=== PATIENT | female | born 1970 | race Two or more races ===

== ENCOUNTER 2024-08-18 13:20 | Outpatient (AMB) | payer MEDICAID, SELFPAY ==
--- NOTE | 2024-08-18 13:37 | PD.ORTHCLVIS ---
Vital signs 08/18/24 13:39 Height 1.57 m Height Method Stated Weight 65.884 kg Weight Measurement Method Standing Scale BMI 26.5 BP 125/84 Blood Pressure Source Automatic Cuff Blood Pressure Location Right Upper Arm Position Sitting Respiration 18 Pulse 70 Pulse Source Monitor Temp 98.1 F Temp Source Temporal Artery Scan Med/Allergies Allergies & Medications Allergies No Known Allergies Allergy (Verified 08/18/24 13:40) Medication Reconciliation benazepril 20 mg tablet (Lotensin) 20 mg PO QDAY 10/08/17 [History Confirmed 08/18/24] hydrochlorothiazide 25 mg tablet 25 mg PO QAM 10/08/17 [History Confirmed 08/18/24] gabapentin 300 mg capsule 300 mg PO TID 08/12/18 [History Confirmed 08/18/24] adalimumab 40 mg/0.8 mL subcutaneous syringe kit (Humira) 40 mg subcut QOWEEK 01/02/21 [History Confirmed 08/18/24] duloxetine 60 mg capsule,delayed release (Cymbalta) 60 mg PO QDAY 01/10/21 [History Confirmed 08/18/24] fluconazole 200 mg tablet 200 mg PO QDAY 01/10/21 [History Confirmed 08/18/24] folic acid 1 mg tablet 1 mg PO QDAY 01/10/21 [History Confirmed 08/18/24] Exam Exam Patient is in no acute distress and is cooperative with the examination today. Breathing is nonlabored. In no respiratory distress. Bilateral extremities were evaluated and demonstrates sensation intact to light touch. Palpable pedal pulses are present. No significant edema is present. Bilateral hips were examined. The patient has no pain with log roll of the hips. Internal rotation to 30 degrees and external rotation to 30 degrees is painless. Negative FADIR. The left knee was examined. The left knee is in varus alignment. Range of motion from 0-115 degrees. Knee is stable to varus and valgus as well as AP translation with <5mm. Patient has a negative McMurrays. There is no pain with patellofemoral compression and no crepitus noted. The knee is tender to palpation medially. The right knee was also examined. The right knee is in valgus alignment. Range of motion from 0-120 degrees. Knee is stable to varus and valgus as well as AP translation with <5mm. Patient has a negative McMurrays. There is no pain with patellofemoral compression and no crepitus noted. The knee is tender to palpation Laterally X-rays were personally reviewed by me. They are over 2 years old. This demonstrates valgus alignment in the lateral arthritis on the left. She has right knee pain on the right Assessment and Plan Problem List (1) Rheumatoid arthritis: Status: Acute Plan: Patient is a 54-year-old female with bilateral rheumatoid arthritis both knees. The left is worse than the right. She has no recent weightbearing x-rays. We will get weightbearing x-rays and discuss different treatment options from there. She is failed conservative treatment with any multiple injections, anti-inflammatories, and physical therapy. 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 OPERATOR Level 3 (0609-0359) MA Intake Visit Data Collection New Patient or Established: New Patient (never been to [facility]) Reason for Visit:: KNEE PAIN Seen by Clinical Staff ONLY (RN/MA): No Verbal consent obtained for Telemed visit?: No Public Events Facilities Rental Manager Required: No PCP or OBGYN visit in last 3 months: Yes Hx Now: No Do You Feel Safe at Home: Yes Authorities Contacted: N/A Questionairres Past Medical History Past Medical History Have you ever been diagnosed with any of the following: Neurological Problems Migraine: Yes Cardiology Problems Congestive Heart Failure: No Hypertension: Yes Respiratory Problems Chronic Obstructive Pulmonary Disease (COPD): No Bronchitis: Yes Genital/Urinary Problems Renal Disease: No Musculoskeletal Problems Arthritis: Yes Carpal Tunnel Syndrome: Yes (hand and shoulder) Fibromyalgia: Yes Endocrine Problems Diabetes Mellitus Type 1: No Diabetes Mellitus Type 2: No Other Problems Cancer: No Surgical History Hysterectomy: Yes Subjective Visit Visit for: new patient and knee Immunization / Flu Flu Vaccine in the Last 12 Months: No Flu Vaccine Exclusion Criteria: No Exclusion Criteria History of Present Illness Chief complaint: Rheumatoid arthritis Jenny is a pleasant 54-year-old female with a left greater than right knee pain that has been ongoing for quite a while. Had a history of prior arthroscopic meniscectomy which did not help. She has had 4 injections with minimal relief. She is also on Celebrex. She is also tried physical therapy Pain Pain level (0-10): 8 Pain duration: ALL DAY Pain location: inside (medial), outside (lateral), anterior and posterior Pain quality: sharp, dull and aching Pain timing: increases with activity Associated signs & symptoms: weakness and stiffness Ambulatory data Ambulatory device: none Treatments Number of previous injections: 4 Improvement with previous injections: No Improvement with PT: No Improvement with NSAIDS: n/a Review of Systems Review of Systems: All systems negative unless otherwise noted in HPI.
[2024-08-18 13:39] VITALS: BP 125/84; PULSE 70; RESP 18; TEMP 36.7; BMI 26.5
== END 2024-08-18 13:48 | disposition home or self-care (01) ==
LOC: HODSRG 13:20
PROVIDERS: PCP Internal Medicine Rheumatology; Referring Provider Internal Medicine Rheumatology; Supervising Provider Orthopaedic Surgery Adult Reconstructive Orthopaedic Surgery; Visit Provider Orthopaedic Surgery Adult Reconstructive Orthopaedic Surgery
DX: M06.862 Other specified rheumatoid arthritis, left knee (principal); M06.861 Other specified rheumatoid arthritis, right knee; M25.562 Pain in left knee; M25.561 Pain in right knee; I10 Essential (primary) hypertension
CPT/HCPCS: 99203; G0463

== ENCOUNTER → 2024-08-18 | Outpatient (CLI) | payer MEDICAID, SELFPAY ==
--- NOTE | 2024-08-18 15:08 | XR_ITS ---
Examination: Knee bilateral, 8 views Technique: Knee AP, lateral, oblique, axial H knee total 8 views Date and time of exam: August 18, 2024 1513 hours INDICATIONS: History left knee dislocation, chronic bilateral knee pain 6 years. FINDINGS: Moderate osteopenia Moderate bilateral tricompartment osteoarthritis, more severe left knee Osteophyte joint bodies in the posterior joint spaces both knees No patellar dislocations IMPRESSION: Moderate bilateral tricompartment osteoarthritis, more severe left knee
== END | disposition home or self-care (01) ==
PROVIDERS: PCP Physician Assistant; Referring Provider Orthopaedic Surgery Adult Reconstructive Orthopaedic Surgery; Visit Provider Orthopaedic Surgery Adult Reconstructive Orthopaedic Surgery
DX: M17.0 Bilateral primary osteoarthritis of knee (principal)
CPT/HCPCS: 73564

== ENCOUNTER 2024-09-05 13:01 | Outpatient (AMB) | payer MEDICAID, SELFPAY ==
--- NOTE | 2024-09-05 13:15 | PD.ORTHCLVIS ---
Vital signs 09/05/24 13:16 Height 1.57 m Height Method Stated Weight 66.395 kg Weight Measurement Method Standing Scale BMI 26.9 BP 118/77 Blood Pressure Source Automatic Cuff Blood Pressure Location Left Upper Arm Position Sitting Respiration 18 Pulse 71 Pulse Source Monitor Temp 97.7 F Temp Source Temporal Artery Scan Pulse Oximetry (%) 96 Oxygen Delivery Method Room Air Med/Allergies Allergies & Medications Allergies No Known Allergies Allergy (Verified 09/05/24 13:16) Medication Reconciliation benazepril 20 mg tablet (Lotensin) 20 mg PO QDAY 10/08/17 [History Confirmed 09/05/24] hydrochlorothiazide 25 mg tablet 25 mg PO QAM 10/08/17 [History Confirmed 09/05/24] gabapentin 300 mg capsule 300 mg PO TID 08/12/18 [History Confirmed 09/05/24] adalimumab 40 mg/0.8 mL subcutaneous syringe kit (Humira) 40 mg subcut QOWEEK 01/02/21 [History Confirmed 09/05/24] duloxetine 60 mg capsule,delayed release (Cymbalta) 60 mg PO QDAY 01/10/21 [History Confirmed 09/05/24] fluconazole 200 mg tablet 200 mg PO QDAY 01/10/21 [History Confirmed 09/05/24] folic acid 1 mg tablet 1 mg PO QDAY 01/10/21 [History Confirmed 09/05/24] Exam Exam Patient is in no acute distress and is cooperative with the examination today. Breathing is nonlabored. In no respiratory distress. Bilateral extremities were evaluated and demonstrates sensation intact to light touch. Palpable pedal pulses are present. No significant edema is present. Bilateral hips were examined. The patient has no pain with log roll of the hips. Internal rotation to 30 degrees and external rotation to 30 degrees is painless. Negative FADIR. The left knee was examined. The left knee is in varus alignment. Range of motion from 0-115 degrees. Knee is stable to varus and valgus as well as AP translation with <5mm. Patient has a negative McMurrays. There is no pain with patellofemoral compression and no crepitus noted. The knee is tender to palpation medially. The right knee was also examined. The right knee is in valgus alignment. Range of motion from 0-120 degrees. Knee is stable to varus and valgus as well as AP translation with <5mm. Patient has a negative McMurrays. There is no pain with patellofemoral compression and no crepitus noted. The knee is tender to palpation Laterally X-rays were personally reviewed by me. This demonstrates valgus alignment in the lateral arthritis on the left. She has mild arthritis on the right Assessment and Plan Problem List (1) Rheumatoid arthritis: Status: Acute Plan: Patient seen for pleasant 54-year-old female with a left knee rheumatoid arthritis with significant severity. We discussed nonoperative and operative options. She is failed conservative treatment occluding injections, anti-inflammatories, physical therapy, and rheumatoid medications. She is currently off rheumatoid medications. We discussed total knee replacement as I was a reasonable option given her failure of conservative treatment. She would like to proceed. The nature and purpose of the total knee replacement, alternative method(s) of treatment, the material risks involved, and the possibility of complications were fully explained to the patient. The patient does NOT have any of the following contraindications to TKA: - Active infection of the knee joint, OR - Active systemic bacteremia, OR - Active skin infection or open wound at surgical site, OR - Neuropathic arthritis, OR - Severe, rapidly progressive neurological disease, OR - Severe medical condition that makes risks of surgery outweigh the potential benefit The patient was told the most common risks and complications associated with a total knee replacement include, but are not limited to: blood clots in the leg, fatal pulmonary embolism, dislocation of the prosthesis, intraoperative and postoperative fractures of the femur or tibia, infection, failure of the prosthesis or grafting materials, complications from anesthesia, reactions to blood transfusions, postoperative leg length inequality, instability of the knee replacement, nerve damage or injury, vascular injury, delayed wound healing, infection, other injury or even . In addition, there are risks associated with anesthesia given during this operation. Also, the patient was told that after undergoing a total knee replacement there may still be persistent pain or disability. The patient was informed that the success of this operation in part depends upon the mechanical devices which are going to be implanted and that these devices can fail or malfunction, and may need to be repaired or replaced and there are no guarantees as to the longevity of this device or its parts and that it or its parts could fail prematurely. The patient was also notified that during the course of surgery, there may be a need to use bone graft from donors, and that any bone graft used will be carefully screened for communicable diseases, including AIDS, hepatitis, Ernesto-Creutzfeldt, or other diseases, but despite the screening procedures, there is a small chance that they could contract one of these diseases. Finally, the patient was asked to follow completely and fully with all advice and recommended treatments, and that recovery and ultimate outcome are affected by their compliance with recommended treatment. We discussed the risks, benefits and treatment alternatives, and the patient is interested in proceeding with surgery. We will try to set this up as expeditiously as possible. Office Procedures GNS Level of Care Nursing/Assessment Patient Status: Established Patient Nursing Assessment/Reassesment: Medication Reconciliation, Update PMH in EMR and Vital Signs Coordination of Care: Complex Care and Chronic Disease 1-5, Education Complex Pt/Fam, Consent,records obtained, informed consent, Results/Orders obtained and Staff clarify orders Established Patient Charge Established Patient Point Assignment: 95 Established Patient Point Charge: EP Level 3 (80-115) MA Intake Visit Data Collection New Patient or Established: Established Patient [place] [facility] [place] Reason for Visit:: 1 WEEK F/U BL XRAYS Seen by Clinical Staff ONLY (RN/MA): No Chemical Operations Specialist Required: No PCP or OBGYN visit in last 3 months: Yes Hx Now: No Do You Feel Safe at Home: Yes Authorities Contacted: N/A Questionairres Past Medical History Past Medical History Have you ever been diagnosed with any of the following: Neurological Problems Migraine: Yes Cardiology Problems Congestive Heart Failure: No Hypertension: Yes Respiratory Problems Chronic Obstructive Pulmonary Disease (COPD): No Bronchitis: Yes Genital/Urinary Problems Renal Disease: No Musculoskeletal Problems Arthritis: Yes Carpal Tunnel Syndrome: Yes (hand and shoulder) Fibromyalgia: Yes Endocrine Problems Diabetes Mellitus Type 1: No Diabetes Mellitus Type 2: No Other Problems Cancer: No Surgical History Hysterectomy: Yes Subjective Visit Visit for: follow up visit, knee and x-rays (RESULTS) Immunization / Flu Flu Vaccine in the Last 12 Months: No Flu Vaccine Exclusion Criteria: Refused by Patient History of Present Illness Chief complaint: Rheumatoid arthritis Jenny is a pleasant 54-year-old female with a left greater than right knee pain that has been ongoing for quite a while. She Had a history of prior arthroscopic meniscectomy which did not help. She has had 4 injections with minimal relief. She is also on Celebrex. She has also tried physical therapy. She is currently off all rheumatoid medications including the Humira and prednisone Pain Pain level (0-10): 8 Pain duration: CONSTANT Pain location: anterior Pain quality: sharp, dull and aching Pain timing: increases with activity and stairs Associated signs & symptoms: numbness Ambulatory data Ambulatory device: none Treatments Number of previous injections: 4 Improvement with previous injections: No Improvement with PT: No Improvement with NSAIDS: no Review of Systems Review of Systems: All systems negative unless otherwise noted in HPI.
[2024-09-05 13:16] VITALS: BP 118/77; PULSE 71; RESP 18; TEMP 36.5; O2SAT 96; BMI 26.9
== END 2024-09-05 13:47 | disposition home or self-care (01) ==
LOC: HODSRG 13:01
PROVIDERS: PCP Physician Assistant; Referring Provider Physician Assistant; Supervising Provider Orthopaedic Surgery Adult Reconstructive Orthopaedic Surgery; Visit Provider Orthopaedic Surgery Adult Reconstructive Orthopaedic Surgery
DX: M06.862 Other specified rheumatoid arthritis, left knee (principal); M25.562 Pain in left knee; M25.561 Pain in right knee; M79.7 Fibromyalgia; I10 Essential (primary) hypertension
CPT/HCPCS: 99213; G0463

== ENCOUNTER → 2024-09-11 | Outpatient (CLI) | payer MEDICAID, SELFPAY ==
--- NOTE | 2024-09-11 10:15 | XR_ITS ---
Examination: Screening digital mammography, bilateral Computer aided detection 3-D breast Tomosynthesis, bilateral Date and time of exam: September 11, 2024 1017 hours Compared to mammograms dating to December 23, 2017 Indication: Screening Technique: Nonmagnified MLO, CC views of the breasts to been obtained, reconstructed from 3-D Tomosynthesis images. R2 computer aided detection program utilized for evaluation of suspicious masses and/or abnormal calcifications. 3-D Tomosynthesis images obtained. Findings: The breasts are heterogeneously dense, which may obscure small masses 14 mm focal asymmetry slightly outer right breast 5.7 cm from the nipple on the CC view Impression: BI-RADS Category 0: Incomplete: Need additional imaging evaluation 14 mm focal asymmetry outer right breast 5.7 cm from the nipple on the CC view, recommend follow-up spot tomographic CC view, spot tomographic MLO view upper right breast, bilateral breast sonography to complete the workup
== END | disposition home or self-care (01) ==
PROVIDERS: Referring Provider Physician Assistant; Visit Provider Physician Assistant
DX: Z12.31 Encounter for screening mammogram for malignant neoplasm of breast (principal); R92.8 Other abnormal and inconclusive findings on diagnostic imaging of breast; N64.89 Other specified disorders of breast
CPT/HCPCS: 77063; 77067

== ENCOUNTER 2024-10-17 10:43 | Outpatient (AMB) | payer MEDICAID, SELFPAY ==
[2024-10-17 11:01] VITALS: BP 137/79; PULSE 66; RESP 19; TEMP 36.3; O2SAT 97; BMI 27.1
--- NOTE | 2024-10-17 11:01 | ORTHONT_ITS ---
Vital signs 10/17/24 11:01 Height 1.57 m Height Method Stated Weight 66.791 kg Weight Measurement Method Standing Scale BMI 27.1 BP 137/79 H Blood Pressure Source Automatic Cuff Blood Pressure Location Left Upper Arm Position Sitting Respiration 19 Pulse 66 Pulse Source Monitor Temp 97.4 F Temp Source Temporal Artery Scan Pulse Oximetry (%) 97 Oxygen Delivery Method Room Air Med/Allergies Allergies & Medications Allergies No Known Allergies Allergy (Verified 10/17/24 11:02) Medication Reconciliation benazepril 20 mg tablet (Lotensin) 20 mg PO QDAY 10/08/17 [History Confirmed 09/05/24] gabapentin 300 mg capsule 300 mg PO TID 08/12/18 [History Confirmed 09/05/24] adalimumab 40 mg/0.8 mL subcutaneous syringe kit (Humira) 40 mg subcut QOWEEK 01/02/21 [History Confirmed 09/05/24] duloxetine 60 mg capsule,delayed release (Cymbalta) 60 mg PO QDAY 01/10/21 [History Confirmed 09/05/24] ibuprofen 600 mg tablet 600 mg PO Q8H PRN 10/17/24 [History Confirmed 10/17/24] Exam Exam Patient is in no acute distress and is cooperative with the examination today. Breathing is nonlabored. In no respiratory distress. Bilateral extremities were evaluated and demonstrates sensation intact to light touch. Palpable pedal pulses are present. No significant edema is present. Bilateral hips were examined. The patient has no pain with log roll of the hips. Internal rotation to 30 degrees and external rotation to 30 degrees is painless. Negative FADIR. The left knee was examined. The left knee is in varus alignment. Range of motion from 0-115 degrees. Knee is stable to varus and valgus as well as AP translation with <5mm. Patient has a negative McMurrays. There is no pain with patellofemoral compression and no crepitus noted. The knee is tender to palpation medially. The right knee was also examined. The right knee is in valgus alignment. Range of motion from 0-120 degrees. Knee is stable to varus and valgus as well as AP translation with <5mm. Patient has a negative McMurrays. There is no pain with patellofemoral compression and no crepitus noted. The knee is tender to palpation Laterally X-rays were personally reviewed by me. This demonstrates valgus alignment in the lateral arthritis on the left. She has mild arthritis on the right Assessment and Plan Problem List (1) Rheumatoid arthritis: Status: Acute Plan: Patient seen for pleasant 54-year-old female with a left knee rheumatoid arthritis with significant severity. We discussed nonoperative and operative options. She is failed conservative treatment occluding injections, anti-infl ammatories, physical therapy, and rheumatoid medications. She is currently off rheumatoid medications. We discussed total knee replacement as I was a reasonable option given her failure of conservative treatment. She would like to proceed. The nature and purpose of the total knee replacement, alternative method(s) of treatment, the material risks involved, and the possibility of complications were fully explained to the patient. The patient does NOT have any of the following contraindications to TKA: - Active infection of the knee joint, OR - Active systemic bacteremia, OR - Active skin infection or open wound at surgical site, OR - Neuropathic arthritis, OR - Severe, rapidly progressive neurological disease, OR - Severe medical condition that makes risks of surgery outweigh the potential benefit The patient was told the most common risks and complications associated with a total knee replacement include, but are not limited to: blood clots in the leg, fatal pulmonary embolism, dislocation of the prosthesis, intraoperative and postoperative fractures of the femur or tibia, infection, failure of the prosthesis or grafting materials, complications from anesthesia, reactions to bl ood transfusions, postoperative leg length inequality, instability of the knee replacement, nerve damage or injury, vascular injury, delayed wound healing, infection, other injury or even . In addition, there are risks associated with anesthesia given during this operation. Also, the patient was told that after undergoing a total knee replacement there may still be persistent pain or disability. The patient was informed that the success of this operation in part depends upon the mechanical devices which are going to be implanted and that these devices can fail or malfunction, and may need to be repaired or replaced and there are no guarantees as to the longevity of this device or its parts and that it or its parts could fail prematurely. The patient was also notified that during the course of surgery, there may be a need to use bone graft from donors, and that any bone graft used will be carefully screened for communicable diseases, including AIDS, hepatitis, Ernesto-Creutzfeldt, or other diseases, but despite the screening procedures, there is a small chance that they could contract one of these diseases. Finally, the patient was asked to follow completely and fully with all advice and recommended treatments, and that recovery and ultimate outcome are affected by their compliance with recommended treatment. We discussed the risks, benefits and treatment alternatives, and the patient is interested in proceeding with surgery. We will try to set this up as expeditiously as possible. Office Procedures GNS Level of Care Nursing/Assessment Patient Status: Established Patient Nursing Assessment/Reassesment: Medication Reconciliation, Update PMH in EMR and Vital Signs Coordination of Care: Complex Care/Chronic Disease 5 or more, Education Complex Pt/Fam, Consent,records obtained, informed consent, 2-3 Insurance Autorizations needed, Lab and Imaging orders, Results/Orders obtained and Staff clarify orders Established Patient Charge Established Patient Point Assignment: 140 Established Patient Point Charge: EP Level 4 (120-155) [place] Intake Visit Data Collection New Patient or Established: Established Patient (seen at [facility] within 3 years) Reason for Visit:: PRE OP LEFT TKA Surgical Corsetier Required: No Do You Feel Safe at Home: Yes Questionairres Past Medical History Past Medical History Have you ever been diagnosed with any of the following: Neurological Problems Migraine: Yes Cardiology Problems Congestive Heart Failure: No Hypertension: Yes Respiratory Problems Chronic Obstructive Pulmonary Disease (COPD): No Bronchitis: Yes Smoking: No Smoking Exposure: No Genital/Urinary Problems Renal Disease: No Musculoskeletal Problems Arthritis: Yes Carpal Tunnel Syndrome: Yes (hand and shoulder) Fibromyalgia: Yes Endocrine Problems Diabetes Mellitus Type 1: No Diabetes Mellitus Type 2: No Psychologic Problems Depression: No Other Problems Cancer: No Surgical History Hysterectomy: Yes Subjective Visit Visit for: knee (LEFT KNEE) Immunization / Flu Flu Vaccine in the Last 12 Months: No Flu Vaccine Exclusion Criteria: No Exclusion Criteria History of Present Illness Chief complaint: PRE OP LEFT TKA Jenny is a pleasant 54-year-old female with a left greater than right knee pain that has been ongoing for quite a while. She Had a history of prior arthroscopic meniscectomy which did not help. She has had 4 injections with minimal relief. She is also on Celebrex. She has also tried physical therapy. She is currently off all rheumatoid medications including the Humira and prednisone Personal History Red flag PMH: none BMI Counceling provided: Yes Pain Pain level (0-10): 7 Pain duration: CONSTANT Pain location: inside (medial) and anterior Pain quality: dull Pain timing: increases with activity and stairs Associated signs & symptoms: weakness Ambulatory data Ambulatory device: none Treatments Number of previous injections: 4 Improvement with previous injections: No Improvement with PT: No Improvement with NSAIDS: no Review of Systems Review of Systems: All systems negative unless otherwise noted in HPI.
== END 2024-10-17 11:16 | disposition home or self-care (01) ==
LOC: HODSRG 10:43
PROVIDERS: Supervising Provider Orthopaedic Surgery Adult Reconstructive Orthopaedic Surgery; Visit Provider Orthopaedic Surgery Adult Reconstructive Orthopaedic Surgery
DX: M06.862 Other specified rheumatoid arthritis, left knee (principal); I10 Essential (primary) hypertension
CPT/HCPCS: 99214; G0463

== ENCOUNTER → 2024-10-17 | Outpatient (CLI) | payer MEDICAID, SELFPAY ==
--- NOTE | 2024-10-17 12:48 | XR_ITS ---
Examination: CT left lower extremity, without contrast. 2-D sagittal reconstructions. 2-D coronal reconstructions. 3-D reconstructions. Date and time of exam:October 17, 2024 1317 hrs. Indications: Left knee pain several months, diagnosis unilateral osteoarthritis CTDI: vol (mGy):10.2 DLP: (mGycm):838 Technique: Multiple 1.25 mm axial sections of the left lower extremity have been obtained. 2-D sagittal and coronal reconstructions have been obtained. 3-D reconstructions have been obtained. Low dose protocols were performed. One or more of the following dose reduction techniques were used; automated exposure control, adjustment of the mA and/or KV according to patient size, use of iterative reconstruction technique. Findings: Moderate osteopenia Mild narrowing left hip joint Advanced narrowing lateral joint space left knee Moderate osteoarthritis medial patellofemoral joints No fractures Impression: Moderate to advanced left knee tricompartment osteoarthritis
== END | disposition home or self-care (01) ==
LOC: CDIM 11:42 → CCTX 11:43
PROVIDERS: PCP Physician Assistant; Referring Provider Orthopaedic Surgery Adult Reconstructive Orthopaedic Surgery; Visit Provider Orthopaedic Surgery Adult Reconstructive Orthopaedic Surgery
DX: M17.12 Unilateral primary osteoarthritis, left knee (principal)
CPT/HCPCS: 73700

== ENCOUNTER 2024-10-30 07:00 | Day surgery (SDC) | payer MEDICAID, SELFPAY ==
--- NOTE | 2024-10-27 06:00 | EKG_ITS ---
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
[2024-10-27 07:23] VITALS: BMI 26.6
[2024-10-27 08:52] LABS: Basophils # (Auto) 0.1 Thou/mm3 (0.0-0.2); Basophils % (Auto) 1 % (0-2.5); Eosinophils # (Auto) 0.1 Thou/mm3 (0.0-0.5); Eosinophils % (Auto) 3 % (0-10); Hematocrit 38.2 % (36.0-46.0); Hemoglobin 12.5 g/dL (12.0-16.0); Immature Granulocytes % (Auto) 0 % (0-0); Immature Granulocytes Auto 0.01 Thou/mm3 (0.00-0.00); Lymphocytes % (Auto) 53 % (10-50); Mean Corpuscular HGB Conc 32.7 g/dl (31.0-37.0); Mean Corpuscular Hemoglobin 26.5 pg (25.0-35.0); Mean Corpuscular Volume 81 fL (80-100); Monocytes # (Auto) 0.6 Thou/mm3 (0.0-0.8); Monocytes % (Auto) 10 % (0-12); Neutrophils # (Auto) 1.9 Thou/mm3 (1.8-7.7); Neutrophils % (Auto) 34 % (37-80); Nucleated Red Blood Cell % 0 /100 WBC (0); Platelet Count 345 Thou/mm3 (140-440); RDW Standard Deviation 43.2 fL (36.4-46.3); Red Blood Count 4.71 Miln/mm3 (4.00-5.20); White Blood Count 5.7 Thou/mm3 (3.6-11.0)
[2024-10-27 09:15] LABS: Alanine Aminotransferase 41 U/L (10-49); Albumin, Serum 4.5 gm/dL (3.5-5.0); Albumin/Globulin Ratio 1.6 (1.2-2.2); Alkaline Phosphatase 72 U/L (46-116); Anion Gap 6 (7-16); Aspartate Amino Transferase 25 U/L (0-34); BUN/Creatinine Ratio 17 Ratio (12-20); Bilirubin,Total 0.5 mg/dL (0.3-1.2); Blood Urea Nitrogen 12 mg/dL (9-23); Calcium 9.2 mg/dL (8.3-10.6); Calcium (Corrected) 9.2 mg/dL (8.5-10.1); Carbon Dioxide 27.3 mMol/L (20.0-31.0); Chloride 108 mMol/L (98-107); Creatinine (Component) 0.7 mg/dL (0.6-1.3); Estimated Creatinine Clearance 82.8 mL/min (>60); Globulin 2.9 gm/dL (2.3-3.5); Glucose 100 mg/dL (74-106); Osmolality,Calculated 280 (275-295); Potassium 4.2 mMol/L (3.4-5.1); Sodium 141 mMol/L (136-145); Total Protein 7.4 gm/dL (5.7-8.2); eGFR > 60 See Note
[2024-10-27 09:46] LABS: Partial Thromboplastin Time 26.7 Seconds (22.0-36.0); Prothrombin Time 10.7 Seconds (9.0-12.2)
[2024-10-30] VITALS (16 sets, daily range): BP systolic 109–146; BP diastolic 77–95; PULSE 64–104; RESP 12–20; TEMP 36.1–36.5; O2SAT 91–98; BMI 26.5
--- NOTE | 2024-10-30 07:59 | SUR.PREOP ---
Patient expressed gratitude for prayer before their procedure.
[2024-10-30] MEDS: RINGERS LACTATED 1000 ML 1,000 ML 20 ML IV (08:10)
[2024-10-30] MEDS: PREGABALIN 75 MG CAPSULE PO (08:10)
[2024-10-30] MEDS: MELOXICAM 7.5 MG TABLET PO (08:11)
[2024-10-30] MEDS: ACETAMINOPHEN 325 MG TABLET 650 MG PO (08:11)
--- NOTE | 2024-10-30 11:41 | ESOP_ITS ---
Date of Procedure 10/30/24 Pre Op Diagnosis left knee rheumatoid arthritis Post Op Diagnosis left knee rheumatoid arthritis Procedure left total knee replacement Findings full thickness cartilage loss and osteophytes Procedure Description Indication: The patient is a [69] year old who has a long history of left knee pain. X-rays show degenerative arthritis involving the knee secondary to RA. Over the past several years the patient has had increasing pain, progressive limitation in function. He has failed conservative measures including activity modification, physical therapy, injections, anti-inflammatories, and assistive devices. After a lengthy discussion of the risks and benefits, the patient presents now for total knee replacement. The nature and purpose of the total knee replacement, alternative method(s) of treatment, the material risks involved, and the possibility of complications were fully explained to the patient. The patient was told the most common risks and complications associated with a total knee replacement include, but are not limited to blood clots in the leg, fatal pulmonary embolism, dislocation of the prosthesis, intraoperative and postoperative fractures of the femur or tibia, infection, failure of the prosthesis or grafting materials, complications from anesthesia, reactions to blood transfusions, postoperative leg length inequality, instability of the knee replacement, nerve damage or injury, vascular injury, delayed wound healing, infections, other injury or even . In addition, there are risks associated with anesthesia given during this operation, temporary or permanent numbness on the skin lateral to the incision can be a complication unique to total knee surgery, and kneeling can be painful after knee replacement surgery. Also, the patient was told that after undergoing a total knee replacement there may still be pain or disability. We discussed with the patient that we will be using a robot-assisted technology. We discussed that there is a possibility of converting to manual instrumentation. The patient was informed that the success of this operation in part depends upon the mechanical devices which are going to be implanted and that these devices can fail or malfunction, and may need to be repaired or replaced and there are no guarantees as to the longevity of this device or its part and that it or its parts could fail prematurely. Finally, the patient was asked to follow completely and fully with all advice and recommended treatments, and that recovery and ultimate outcome are affected by their compliance with recommended treatment. Surgical technique: Patient was marked and consented in the pre-operative area. The patient was brought to the operating room and placed on the operating table in a supine position. Prior to positioning, a timeout procedure was performed between the surgeon, the anesthesiologist, and the nursing staff where the patient and the operative side were identified and confirmed. After adequate general anesthetic was obtained, the left lower extremity was prepped and draped in the usual sterile fashion. A weight based dose of Cefazolin were administered within 1 hour prior to incision. The robot was preregistered and calirated before the incision. The extremity was exsanguinated with an esmarch badge and tourniquet inflated to 250mmHg. A midline incision was made. A median parapatellar arthrotomy was made. The patella was subluxed laterally. A medial release was performed to expose the medial tibia. His femoral and tibial pins were placed through an intra incisional manner for both cases. Every effort was made to ensure that the distalmost aspect of the pin was hung in the second cortex. The arrays were then tightened several times to ensure that it was fixed for the remainder of the case. Both femoral and tibial checkpoints were then placed. We then went through the registration process of the bone. We then assessed the knee deformity and attempted to correct it. We also used the robot to aid in judging laxity in both extension and flexion. Final based on laxity and alignment we changed the preoperative assessment to obtain proper proper implant positioning and to correct deformity. Attention was then placed to the tibia. We made a tibial cut using the robot ensuring that both the MCL and the patella tendon were protected with retractors. We then went to the femur and made the posterior cut followed by the anterior cut and the anterior chamfer. The bone was then removed and we made a distal femur cut and a posterior chamfer cut. We verified all cuts. A trial reduction was performed with a size 3 femoral component and a size 2 keeled tibial component. The patella was cut and sized to a 31. The patella tracked centrally, and no lateral retinacular release was necessary. The trial implants were removed. The arrays, pins, and checkpoints were all removed. We performed a verification that all pins were removed. The cut bone surfaces were lavaged. A size 3 left femoral component, a size 2 keeled tibial component, and a size 31 patella were impacted into position. The knee was felt to be well balanced in the sagittal and coronal plane. The final 2x9 mm cruciate-substituting articular insert was impacted into the tibial tray. The knee was brought out to full extension, flexed up to 120 degrees. It was stable to varus and valgus stress and appropriately balanced in flexion and extension. The wounds were copiously irrigated following deflation of tourniquet. The medial retinaculum was reapproximated with #1 vicryl and quill. The subcutaneous tissues were closed with 0 and 2-0 interrupted Vicryl. The skin was closed with 3-0 Monofilament V loc suture. A sterile dressing was applied. The patient was transferred to a bed and brought to recovery in stable condition. The patient tolerated the procedure well. There were no intraoperative complications. Sponge and needle counts were correct times 2. As the attending surgeon, I attest I was present and performed the entire operation. Grafts/Implants Size 3 CR Femur Size 2 Tibia 9mm poly CS 31mm patella Anesthesia GETA Implants adarsh Pathology / specimen None Pathology comment: none Estimated Blood Loss 150 Condition Stable Disposition same day Surgeon Edwin Dhillon MD Surgical Staff Operation Date: 10/30/24 10:45 Case Staff Anesthesiologist: Amadeo Mireles RNemergency communications officer: Alison Sigala
--- NOTE | 2024-10-30 11:57 | XR_ITS ---
Examination: Left knee 2 views Technique one AP lateral left knee 2 views Exam date and time: October 30, 2024 1310 hours INDICATIONS: Postop knee replacement today. FINDINGS: Total left knee arthroplasty. Satisfactory alignment No fracture IMPRESSION: Total left knee arthroplasty with satisfactory alignment
--- NOTE | 2024-10-30 12:06 | SUR.PHASEI ---
1206: Pt. AAOx4, vitals stable, breathing unlabored, complaint of pain, MD Mireles gave 25 fent at bedside, dressing to left knee CDI, no active bleed noted, bilateral dorsalis pedis pulses strong and regular, cap refill to bilateral feet less than 3 seconds, report received from MD Mireles and Michel TAFOYA.
[2024-10-30] MEDS: fentaNYL CIT INJ 50 mCg/ML AMP 2ML IV ×2 (12:27→13:04)
[2024-10-30] MEDS: CYCLObenzaPRINE 5 MG TABLET 10 MG PO (12:34)
--- NOTE | 2024-10-30 13:00 | SUR.PHASEII ---
Received report on pt. s/p surgery from Abi TAFOYA. Pt. is resting, responds to verbal commands, c/o pain 5/10, will provide pain medication per order. Cap refill <3 seconds, palpable pulses to priyanka. feet.
--- NOTE | 2024-10-30 13:33 | SUR.PHASEII ---
1333: Report received from Leslie TAFOYA. Pt. AAOx4, vitals stable, breathing unlabored, dressing CDI, no complaint of pain or nausea.
[2024-10-30] MEDS: ONDANSETRON INJ 2 MG/ML INJ 2 ML 4 MG IV (13:54)
[2024-10-30] MEDS: METOCLOPRAMIDE INJ 5 MG/ML VIAL 2 ML 10 MG IVP (14:32)
[2024-10-30] MEDS: ACETAMINOPHEN IVPB 1,000 MG/100 ML VIAL 250 MG IV (15:11)
--- NOTE | 2024-10-30 15:40 | SUR.PHASEII ---
1540: Pt. AAOx4, vitals stable, breathing unlabored, no complaint of pain or nausea, dressing to left knee CDI, no active bleeding noted. Bilateral dorsalis pedis pulses strong and regular, cap refill to bilateral feet less than 3 seconds, Pt. tolerated PT well, pt. tolerated sips of water well, pt. ambulated to wheelchair with steady gait and no assist, no complications. Gave discharge instructions to the pt. and her ride, both verbalized understanding and had no further questions. Pt. left with all personal belongings.
--- NOTE | 2024-11-01 14:39 | PD.ANESPROG ---
Documentation for date of: 11/01/24 POST ANESTHESIA NOTE: Patient had GETA and L adductor canal block for L TKA on 10/30/24. I just called and spoke with her on the phone and she denied any problems from anesthesia. Amadeo Mireles MD Anesthesia Progress Note Progress Note Most recent Vital Signs: Last Vital Signs Temp 97.7 F 10/30/24 15:30 Pulse 87 10/30/24 15:30 Resp 13 10/30/24 15:30 BP 109/80 10/30/24 15:30 Pulse Ox 93 L 10/30/24 15:30 O2 Flow Rate 2 10/30/24 13:55
== END 2024-10-30 15:40 | disposition home or self-care (01) ==
PROVIDERS: Anesthesiology; PCP Physician Assistant; Referring Provider Orthopaedic Surgery Adult Reconstructive Orthopaedic Surgery; Visit Provider Orthopaedic Surgery Adult Reconstructive Orthopaedic Surgery
PROC: (CPT 27447; principal; 2024-10-30 10:30)
DX: M06.862 Other specified rheumatoid arthritis, left knee (principal); M25.762 Osteophyte, left knee; I10 Essential (primary) hypertension
CPT/HCPCS: 27447; 20985; 36415; 73560; 80053; 85025; 85610; 85730; 93005; 97162; A4217; C1713; C1776; J0131; J0690; J1100; J2250; J2371; J2405; J2704; J2765; J2795; J3010; J3490; J7030; J7120; J7999; A4648; A4649; A9270; J1805

== ENCOUNTER 2024-11-07 18:36 | Emergency (ER) | payer MEDICAID, SELFPAY ==
[2024-11-07 18:37] VITALS: BMI 26.2
--- NOTE | 2024-11-07 19:21 | PD.EDRME ---
Rapid Medical Screening Exam RME Arrival date/time: 11/07/24 18:36 Chief Complaint: Headache Time Seen by Provider: 11/07/24 19:03 Vital signs: This is a 54-year-old female comes in with multiple complaints. Patient recently had a knee replacement approximately 1 week ago. Patient states that she has been very nauseous and it is hard to keep any food down. Patient had her medications changed recently from [place] to oxycodone. This still has not helped patient's pain and nausea. Patient states she started to feel dizzy lightheaded chest pain shortness of breath. Patient states she is not able to keep any food down. I have greeted and performed a focused initial assessment of this patient. Initial appropriate labs ordered at this time. A comprehensive ED assessment and evaluation of the patient and analysis of all test and completion of medical decision making process will be conducted by additional ED provider.
--- NOTE | 2024-11-07 19:23 | EKG_ITS ---
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
--- NOTE | 2024-11-07 19:23 | XR_ITS ---
Examination: PA lateral chest 2 views TECHNIQUE: Upright PA and lateral chest 2 views Standing time: November 07, 2024 1935 hours INDICATIONS: Chest pain and shortness of breath today FINDINGS: Normal heart size Lungs are clear. Osseous structures are intact IMPRESSION: No active disease in
[2024-11-07 19:25] VITALS: BP 110/74; PULSE 90; RESP 18; TEMP 36.6; O2SAT 95
[2024-11-07 19:59] LABS: Basophils # (Auto) 0.1 Thou/mm3 (0.0-0.2); Basophils % (Auto) 1 % (0-2.5); Eosinophils # (Auto) 0.1 Thou/mm3 (0.0-0.5); Eosinophils % (Auto) 1 % (0-10); Hematocrit 36.5 % (36.0-46.0); Hemoglobin 12.4 g/dL (12.0-16.0); Immature Granulocytes % (Auto) 0 % (0-0); Immature Granulocytes Auto 0.04 Thou/mm3 (0.00-0.00); Lymphocytes % (Auto) 18 % (10-50); Mean Corpuscular Hemoglobin 26.8 pg (25.0-35.0); Mean Corpuscular Volume 79 fL (80-100); Monocytes # (Auto) 0.9 Thou/mm3 (0.0-0.8); Monocytes % (Auto) 8 % (0-12); Neutrophils # (Auto) 7.8 Thou/mm3 (1.8-7.7); Neutrophils % (Auto) 72 % (37-80); Nucleated Red Blood Cell % 0 /100 WBC (0); Platelet Count 457 Thou/mm3 (140-440); RDW Standard Deviation 40.4 fL (36.4-46.3); Red Blood Count 4.62 Miln/mm3 (4.00-5.20); White Blood Count 10.8 Thou/mm3 (3.6-11.0)
[2024-11-07 20:15] LABS: B-Type Natriuretic Peptide 21 pg/mL (0-100)
[2024-11-07] MEDS: ONDANSETRON ODT 4 MG TABRAP PO (20:16)
[2024-11-07 20:18] LABS: Alanine Aminotransferase 17 U/L (10-49); Albumin, Serum 4.7 gm/dL (3.5-5.0); Albumin/Globulin Ratio 1.3 (1.2-2.2); Alkaline Phosphatase 75 U/L (46-116); Anion Gap 9 (7-16); Aspartate Amino Transferase 14 U/L (0-34); BUN/Creatinine Ratio 15 Ratio (12-20); Bilirubin,Total 0.6 mg/dL (0.3-1.2); Blood Urea Nitrogen 9 mg/dL (9-23); Calcium 9.7 mg/dL (8.3-10.6); Calcium (Corrected) 9.7 mg/dL (8.5-10.1); Carbon Dioxide 27.1 mMol/L (20.0-31.0); Chloride 101 mMol/L (98-107); Creatinine (Component) 0.6 mg/dL (0.6-1.3); Estimated Creatinine Clearance 95.9 mL/min (>60); Globulin 3.5 gm/dL (2.3-3.5); Glucose 111 mg/dL (74-106); Osmolality,Calculated 273 (275-295); Potassium 3.9 mMol/L (3.4-5.1); Sodium 137 mMol/L (136-145); Total Protein 8.2 gm/dL (5.7-8.2); Troponin I < 0.002 ng/mL (0.0-0.045); eGFR > 60 See Note
[2024-11-07 20:23] LABS: Collection Type, Urine Voided
[2024-11-07 20:55] LABS: Amorphous Crystals,Urine Present (Absent); Bilirubin,Urine Negative (Negative); Blood,Urine Negative (Negative); Clarity,Urine Clear (Clear/Hazy); Color,Urine Yellow (Lt Yel-Yel); Culture Indicated,Urine Not Indicated; Glucose, Urine Negative (Negative); Ketones,Urine 2+ (Negative); Leukocyte Esterase,Urine Negative (Negative); Nitrite,Urine Negative (Negative); PH,Urine 8.5 (5.0-7.0); Protein,Urine 1+ (Neg - Trace); RBC,Urine 1 /hpf (0-3); Specific Gravity,Urine 1.025 (1.001-1.035); Squamous Epithelial Cell,Urine 2 /hpf (0-5); Urobilinogen,Urine Negative mg/dL (0.0-1.0); WBC,Urine < 1 /hpf (0-5)
--- NOTE | 2024-11-07 21:36 | PD.EDRME ---
Rapid Medical Screening Exam RME Arrival date/time: 11/07/24 18:36 11/07/24 18:36 Chief Complaint: Headache Time Seen by Provider: 11/07/24 19:03 Vital signs: Vital Signs Temperature 98 F 11/07/24 19:25 Pulse Rate 90 11/07/24 19:25 Respiratory Rate 18 11/07/24 19:25 Blood Pressure 110/74 11/07/24 19:25 Pulse Oximetry (%) 95 11/07/24 19:25 Oxygen Delivery Method Room Air 11/07/24 19:25 RME Narrative: 11/07/24 18:36
[2024-11-07 22:23] VITALS: BP 128/89; PULSE 76; RESP 18; TEMP 36.8; O2SAT 98
--- NOTE | 2024-11-07 22:45 | PD.EDADULT ---
ED General RME/HPI General Chief complaint: Headache Stated complaint: S/P LEFT KNEE SURGERY ,N/V, SOUTH Time Seen by Provider: 11/07/24 19:03 Arrival date/time: 11/07/24 18:36 CC: Lightheaded dizzy nausea HPI ongoing for the past 4 days after having her knee replaced by Dr. Dhillon. Patient denies any out of the ordinary pain in her left knee which was replaced. The patient is awake alert oriented nontoxic. Denies any chest pain shortness of breath difficulty breathing or fever. There is a rough correlation with the dizziness and lightheadedness the time of the patient has been taking OxyContin for the knee pain status post surgery RME / HPI RME / HPI narrative: 11/07/24 18:36 Related Data Home Medications ?Medication ?Instructions ?Recorded ?Confirmed duloxetine 60 mg capsule,delayed 60 mg PO QDAY 01/10/21 10/27/24 release (Cymbalta) ibuprofen 600 mg tablet 600 mg PO Q8H PRN pain 10/17/24 10/27/24 celecoxib 100 mg capsule 100 mg PO Q12H 10/27/24 10/27/24 magnesium 200 mg tablet 200 mg PO BID 10/27/24 10/27/24 omeprazole 40 mg capsule,delayed 40 mg PO DAILY 10/27/24 10/27/24 release vitamins-iron fumarate 65 1 tab PO QAM 10/27/24 10/27/24 mg iron-folic acid 1 mg tablet Previous Rx's ?Medication ?Instructions ?Recorded acetaminophen 500 mg tablet 1,000 mg (2 x 500 mg) PO Q6H PRN 10/30/24 (Acetaminophen Extra Strength) pain #90 tabs aspirin 81 mg tablet,delayed 81 mg PO BID #60 tabs 10/30/24 release doxycycline hyclate 100 mg tablet 100 mg PO BID #14 tabs 10/30/24 gabapentin 300 mg capsule 300 mg PO .qhs #30 caps 10/30/24 oxycodone 5 mg tablet 5 mg PO Q6H PRN pain #28 tabs 10/30/24 oxycodone 5 mg tablet 5 mg PO Q6H PRN pain #28 tabs 10/30/24 sennosides 8.6 mg-docusate sodium 1 tab-cap PO QDAY #30 tabs 04/21/25 50 mg tablet (Senna-S) hydrocodone 5 mg-acetaminophen 325 1 tab PO Q6H PRN pain #28 tabs 11/06/24 mg tablet pantoprazole 40 mg tablet,delayed 40 mg PO QDAY #30 tabs 11/06/24 release ondansetron 4 mg disintegrating 4 mg PO Q8H #10 tabs 11/07/24 tablet Allergies Allergy/AdvReac Type Severity Reaction Status Date / Time No Known Allergies Allergy Verified 11/07/24 18:41 Review of Systems Review of Systems Narrative Review of Systems: GEN: No fever, no chills, no weight loss EYES: No discharge, no visual changes, no pain HEENT: No ear pain, no congestion, no sore throat PULM: No shortness of breath, no cough, no congestion CV: No chest pain, no dyspnea on exertion, no palpitations GI: No nausea, no vomiting, no diarrhea, no pain, no constipation : No frequency, no urgency, no dysuria MUSC/SKEL: No joint pain, no back pain SKIN: No rash PSYCH: No hallucinations, no depression HEME/LYMPH: No easy bleeding or bruising tendencies NEURO: No weakness, no headache,+ dizziness Past Medical History Past Medical History NEUROLOGIC: Positive Neurological Disorders and Migraine; Negative Seizures CARDIAC: Positive Cardiac Disorders, Hypertension (diet control per patient) and Varicose Veins; Negative Congestive Heart Failure RESPIRATORY: Negative Chronic Obstructive Pulmonary Disease (COPD), Bronchitis, Smoking or Smoking Exposure GASTROINTESTINAL: Positive Gastrointestinal Disorders (Constipation); Negative Hepatitis GENITOURINARY: Negative Genitourinary Disorders or Renal Disease REPRODUCTIVE: Positive Previous Pregnancies MUSCULOSKELETAL: Positive Musculoskeletal Disorders, Arthritis, Carpal Tunnel Syndrome (right) and Fibromyalgia ENDOCRINE: Negative Endocrine Disorders, Diabetes Mellitus Type 1 or Diabetes Mellitus Type 2 HEMATOLOGIC: Negative Blood Disorders PSYCHO/SOCIAL: Negative Depression OTHER HISTORY: Positive Hospitalization (surgery), Chicken Pox, Measles and Mumps; Negative Autoimmune Disease, Shingles, Blood Transfusions, Anesthesia Reactions or Cancer Family History FAMILY HISTORY: Positive Family Cardiac Disorders, Family Cancer and Family Surgery; Negative Family Psychiatric Problems, Family Respiratory Disorders, Family Gastrointestinal Problems or Family Anesthesia Reaction Surgical History SURGICAL: Positive Arthroscopy (left knee) and Hysterectomy Social History SMOKING STATUS: Never smoker ED Exam Narrative Physical exam: [General: Appears not in any distress. Acute distress Head normocephalic HEENT: Eyes pupils are PERRLA EOMs are intact all other subsystems of HEENT are within acceptable limits Neck is supple nontender Chest equal chest rise nontender to palpation Respiratory: Clear to auscultation no wheezes crackles or rubs CV: Rate rhythm is regular no murmurs rubs or clicks Abdomen is soft nontender no masses positive bowel sounds all 4 quadrants Back: No CVA tenderness no spinous process tenderness from cervical spine thoracic and lumbar spine Skin: Intact no petechiae rash induration ulceration or crepitus Extremities: Left lower extremity knee: The patient has a vertical knee incision that is clean dry and intact Steri-Strips in place no surrounding erythema or edema. Patient has active and passive range of motion of the knee no pops or clicks there is no posterior fossa pain with palpation no erythema in the posterior fossa no significant edema in the lower extremity. Site is clean dry and intact. moving all other extremities against resistance cap refill less than 2 seconds neurosensory intact Neuro: Awake alert oriented x3 Glascow coma 15 no focal deficits] Course Course Course Narrative: Patient states this nausea and dizziness came with OxyContin in addition to when she was switched to a [place] the dizziness actually increased. Currently the patient is mildly dizzy. Will give the patient a liter of fluid, we have resolved the nausea with ondansetron. Will try the patient on a small amount of meclizine to see if this is effective as well. If not patient be discharged home on ondansetron to follow-up with Dr. Dhillon. Quality Measures none Orders Category Date Time Status EKG (ED ONLY) *Do not use* NOW Care 11/07/24 19:23 Completed Saline [Insert IV] NOW Care 11/07/24 22:52 Active EKG (ED Only) Stat Exams 11/07/24 19:23 Draft XR chest 2V Stat Exams 11/07/24 19:23 Completed BNP [B-Type Natriuretic Peptide] Stat Lab 11/07/24 19:45 Completed CBC Stat Lab 11/07/24 19:45 Completed Comprehensive Metabolic Panel Stat Lab 11/07/24 19:45 Completed Troponin I Stat Lab 11/07/24 19:45 Completed Urinalysis, C/S if Indicated Stat Lab 11/07/24 19:56 Completed Ondansetron Odt [Zofran Odt] Med 11/07/24 19:23 Discontinued 4 mg PO X1 ONE SODIUM CHLORIDE 0.9% @ Wide Open(1,000ml) Med 11/07/24 22:52 Ordered Sodium Chloride 0.9% 1000 ml [Ns] 1,000 ml IV 999 mls/hr Vital Signs Vital signs: Vital Signs Temperature 98 F 11/07/24 19:25 Pulse Rate 90 11/07/24 19:25 Respiratory Rate 18 11/07/24 19:25 Blood Pressure 110/74 11/07/24 19:25 Pulse Oximetry (%) 95 11/07/24 19:25 Oxygen Delivery Method Room Air 11/07/24 19:25 Discharge Plan Plan Patient Disposition: HOME (Self Care) Prescriptions/Referrals Prescriptions/Med Rec: New ondansetron 4 mg tablet,disintegrating 4 mg PO Q8H Qty: 10 0RF No Action ibuprofen 600 mg tablet 600 mg PO Q8H PRN (Reason: pain) duloxetine [Cymbalta] 60 mg Capsule,Delayed Release(Dr/Ec) 60 mg PO QDAY omeprazole 40 mg capsule,delayed release(DR/EC) 40 mg PO DAILY Patient Comments: TAKE 1 CAPSULE BY MOUTH ONCE DAILY 30 MINUTES BEFORE A MEAL FOR THE STOMACH celecoxib 100 mg capsule 100 mg PO Q12H magnesium 200 mg tablet 200 mg PO BID vit-iron fum-folic ac 65 mg iron- 1 mg tablet 1 tab PO QAM sennosides-docusate sodium [Senna-S] 8.6-50 mg tablet 1 tab-cap PO QDAY Qty: 30 0RF aspirin 81 mg tablet,delayed release (DR/EC) 81 mg PO BID Qty: 60 0RF acetaminophen [Acetaminophen Extra Strength] 500 mg tablet 1,000 mg PO Q6H MDD 1000mg PRN (Reason: pain) Qty: 90 0RF gabapentin 300 mg capsule 300 mg PO .qhs Qty: 30 0RF doxycycline hyclate 100 mg tablet 100 mg PO BID Qty: 14 0RF oxycodone 5 mg tablet 5 mg PO Q6H MDD 40 PRN (Reason: pain) Qty: 28 0RF oxycodone 5 mg tablet 5 mg PO Q6H MDD 20 PRN (Reason: pain) Qty: 28 0RF Rx Instructions: z96.65 pantoprazole 40 mg tablet,delayed release (DR/EC) 40 mg PO QDAY Qty: 30 0RF hydrocodone-acetaminophen 5-325 mg tablet 1 tab PO Q6H MDD 20 PRN (Reason: pain) Qty: 28 0RF Rx Instructions: z96.65 Referrals: No Primary/Family,Physician [Primary Care Provider] - In 1 week Problem List Clinical Impression: Nausea, Dizziness Patient/Caregiver Discharge Instructions Education Materials: ED Dizziness, Uncertain Cause Additional Instructions: Drink plenty of fluids. Eat food is much as you can follow-up with Dr. Dhillon if there is worsening symptoms return the emergency room for reevaluation. Print Language: German Stand Alone Forms: Naty Award Info., Patient Portal Info Letter, Work/School Release PA/APPLICATIONS SCIENTIST Supervising Physician PA/APPLICATIONS SCIENTIST Supervising Physician: Simon Gardner ENChristian MDM Patient Acuity High Acuity (complete MDM) Narrative: Patient is 4 days status post knee replacement. Clinical Information Provided by: patient Medical Records reviewed [facility] Chronic Illness/Social Conditions Explain: Recent knee replacement EKG EKG Interpretation(s): EKG performed at 1923 shows a ventricular rate of 84 VA interval 167 QRS of 86 QTc of 400 is sinus rhythm nonspecific ST segment changes. Labs Lab(s) Interpretation(s): CBC shows no acute leukocytosis anemia thrombocytopenia CMP shows no significant electrolyte imbalances glucose of 111 no transaminitis T. bili elevation Urine is positive for 1+ protein 2+ protein ketones, no findings suggestive of UTI. Imaging Imaging Interpretation(s): Chest x-ray is negative for any acute findings interpreted by me read by radiology. Medication Administration(s) Medication Administration History Discontinued Medications Ondansetron HCl (Ondansetron Odt 4 Mg Tabrap) 4 mg PO X1 ONE; Protocol Stop: 11/07/24 19:24 Last Admin: 11/07/24 20:16 Dose: 4 mg Documented By: DELORIS
[2024-11-07] MEDS: SODIUM CHLORIDE 0.9% 1000 ML 1,000 ML 999 ML IV (23:28)
[2024-11-07] MEDS: MECLIZINE HCL 25 MG TABLET PO (23:28)
[2024-11-08 00:01] VITALS: BP 133/80; PULSE 75; RESP 18; TEMP 36.6; O2SAT 96
== END 2024-11-08 00:17 | disposition home or self-care (01) ==
PROVIDERS: Nurse Practitioner Family; Emergency Provider Emergency Medicine
DX: R42 Dizziness and giddiness (principal); R11.0 Nausea; Z96.659 Presence of unspecified artificial knee joint
CPT/HCPCS: 36415; 71046; 80053; 81001; 83880; 84484; 85025; 93005; 96360; 99284; J7030; Q0162; A9270

== ENCOUNTER 2024-11-21 10:58 | Outpatient (AMB) | payer SELFPAY ==
[2024-11-21 11:23] VITALS: BP 123/88; PULSE 81; RESP 18; TEMP 36.6; O2SAT 95; BMI 25.8
--- NOTE | 2024-11-21 11:23 | ORTHONT_ITS ---
Vital signs 11/21/24 11:23 Height 1.57 m Height Method Stated Weight 63.673 kg Weight Measurement Method Standing Scale BMI 25.8 BP 123/88 H Blood Pressure Source Automatic Cuff Blood Pressure Location Right Upper Arm Position Sitting Respiration 18 Pulse 81 Pulse Source Monitor Temp 97.9 F Temp Source Temporal Artery Scan Pulse Oximetry (%) 95 Oxygen Delivery Method Room Air Med/Allergies Allergies & Medications Allergies No Known Allergies Allergy (Verified 11/21/24 11:24) Medication Reconciliation duloxetine 60 mg capsule,delayed release (Cymbalta) 60 mg PO QDAY 01/10/21 [History Confirmed 11/21/24] ibuprofen 600 mg tablet 600 mg PO Q8H PRN pain 10/17/24 [History Confirmed 11/21/24] celecoxib 100 mg capsule 100 mg PO Q12H 10/27/24 [History Confirmed 11/21/24] magnesium 200 mg tablet 200 mg PO BID 10/27/24 [History Confirmed 11/21/24] omeprazole 40 mg capsule,delayed release 40 mg PO DAILY 10/27/24 [History Confirmed 11/21/24] vitamins-iron fumarate 65 mg iron-folic acid 1 mg tablet 1 tab PO QAM 10/27/24 [History Confirmed 11/21/24] acetaminophen 500 mg tablet (Acetaminophen Extra Strength) 1,000 mg (2 x 500 mg) PO Q6H PRN pain #90 tabs 10/30/24 [Rx Confirmed 11/21/24] aspirin 81 mg tablet,delayed release 81 mg PO BID #60 tabs 10/30/24 [Rx Confirmed 11/21/24] doxycycline hyclate 100 mg tablet 100 mg PO BID #14 tabs 10/30/24 [Rx Confirmed 11/21/24] gabapentin 300 mg capsule 300 mg PO .qhs #30 caps 10/30/24 [Rx Confirmed 11/21/24] oxycodone 5 mg tablet 5 mg PO Q6H PRN pain #28 tabs 10/30/24 [Rx Confirmed 11/21/24] oxycodone 5 mg tablet 5 mg PO Q6H PRN pain #28 tabs 10/30/24 [Rx Confirmed 11/21/24] sennosides 8.6 mg-docusate sodium 50 mg tablet (Senna-S) 1 tab-cap PO QDAY #30 tabs 10/30/24 [Rx Confirmed 11/21/24] hydrocodone 5 mg-acetaminophen 325 mg tablet 1 tab PO Q6H PRN pain #28 tabs 11/06/24 [Rx Confirmed 11/21/24] pantoprazole 40 mg tablet,delayed release 40 mg PO QDAY #30 tabs 11/06/24 [Rx Confirmed 11/21/24] ondansetron 4 mg disintegrating tablet 4 mg PO Q8H #10 tabs 11/07/24 [Rx Confirmed 11/21/24] Exam Exam Patient is in no acute distress and is cooperative with the examination today. Breathing is nonlabored. In no respiratory distress. Bilateral extremities were evaluated and demonstrates sensation intact to light touch. Palpable pedal pulses are present. No significant edema is present. Bilateral hips were examined. The patient has no pain with log roll of the hips. Internal rotation to 30 degrees and external rotation to 30 degrees is painless. Negative FADIR. Left knee incisions clean dry intact. Range of motion 0 to 30 degrees Assessment and Plan Problem List (1) Rheumatoid arthritis: Status: Acute Plan: Patient seen for pleasant 54-year-old female with a left knee rheumatoid arthri tis with significant severity. She is status post left total knee replacement and is doing well. She needs to work aggressively with therapy. We will see her in approximately 3 weeks Office Procedures GNS Level of Care Nursing/Assessment Patient Status: Established Patient Nursing Assessment/Reassesment: Medication Reconciliation, Update PMH in EMR and Vital Signs Coordination of Care: Complex Care and Chronic Disease 1-5, Education Complex Pt/Fam, Consent,records obtained, informed consent, Lab and Imaging orders, Results/Orders obtained and Staff clarify orders Special Needs: Language special needs Established Patient Charge Established Patient Point Assignment: 110 Established Patient Point Charge: EP Level 3 (80-115) MA Intake Visit Data Collection New Patient or Established: Established Patient (seen at [facility] within 3 years) Reason for Visit:: F/U 2 WEEKS LEFT TKA Seen by Clinical Staff ONLY (RN/MA): No Verbal consent obtained for Telemed visit?: No Winder Contort Operator Required: No PCP or OBGYN visit in last 3 months: Yes Hx Now: No Do You Feel Safe at Home: Yes Authorities Contacted: N/A Questionairres Past Medical History Past Medical History Have you ever been diagnosed with any of the following: Neurological Problems Seizures: No Migraine: Yes Cardiology Problems Congestive Heart Failure: No Hypertension: Yes (diet control per patient) Varicose Veins: Yes Respiratory Problems Chronic Obstructive Pulmonary Disease (COPD): No Bronchitis: No Smoking: No Smoking Exposure: No Stomache/Intestinal Problems Hepatitis: No Genital/Urinary Problems Renal Disease: No Reproductive Problems Previous Pregnancies: Yes Musculoskeletal Problems Arthritis: Yes Carpal Tunnel Syndrome: Yes (right) Fibromyalgia: Yes Endocrine Problems Diabetes Mellitus Type 1: No Diabetes Mellitus Type 2: No Psychologic Problems Depression: No Other Problems Hospitalization: Yes (surgery) Shingles: No Blood Transfusions: No Anesthesia Reactions: No Chicken Pox: Yes Measles: Yes Mumps: Yes Cancer: No Surgical History Hysterectomy: Yes Subjective Visit Visit for: follow up visit and knee Immunization / Flu Flu Vaccine in the Last 12 Months: Yes Flu Vaccine Exclusion Criteria: Already Received History of Present Illness Chief complaint: 2 WEEK F/U ON LEFT TKA Jenny is a pleasant 54-year-old female with a left greater than right knee pain that has been ongoing for quite a while. She is 3 weeks status post left total knee replacement. She is doing well Personal History Occupation: DISABLED Red flag PMH: BMI BMI Counceling provided: Yes Pain Pain level (0-10): 5 Pain duration: ALL DAY Pain location: inside (medial), outside (lateral), anterior and posterior Pain quality: dull Pain timing: increases with activity and stairs Associated signs & symptoms: weakness Ambulatory data Ambulatory device: cane Treatments Number of previous injections: 4 Improvement with previous injections: No Improvement with PT: No Improvement with NSAIDS: no Review of Systems Review of Systems: All systems negative unless otherwise noted in HPI.
== END 2024-11-21 11:45 | disposition home or self-care (01) ==
LOC: HODSRG 10:58
PROVIDERS: PCP Physician Assistant; Referring Provider Physician Assistant; Supervising Provider Orthopaedic Surgery Adult Reconstructive Orthopaedic Surgery; Visit Provider Orthopaedic Surgery Adult Reconstructive Orthopaedic Surgery
DX: M06.9 Rheumatoid arthritis, unspecified (principal); Z96.652 Presence of left artificial knee joint; I10 Essential (primary) hypertension
CPT/HCPCS: 99213; G0463

== ENCOUNTER 2024-12-06 11:41 | Outpatient (RCR) | payer MEDICAID, SELFPAY ==
--- NOTE | 2024-12-06 11:50 | PTNOTE_ITS ---
PT OP Initial Eval Patient Information Outpatient Physical Therapy Treatment Date: 12/06/24 Visit Reasons: Left TKA Medical Diagnosis: Z96.652 Treatment Dx #1: L knee pain Treatment Dx #2: Decreased L knee ROM Start of Care: 12/06/24 Date of Onset: 10/30/24 Smoking Status Smoking Status: Never smoker Initial Assessment Subjective: Pt is 54 yr old female s/p L TKA presents ambulating with a cane outside the house. She says she can walk for about 5 minutes and the knee starts to hurt more. The knee feels stiff and it's difficult to bend the knee. PMH: RA, HTN Pt goal: to bend the knee more and walk further Objective: L knee AROM: Flexion: 57 deg Extension: -18 deg SLR: 65 deg with extensor lag Strength: Quads: 3+/5 HS: 4-/5 Gait: ambulates with flexed knee step through gait with cane Assessment: Pt presentation consistent with post op L TKA with decreased ROM, strength ? and WB tolerance. Pt lacks knee extension and flexion is limited by ? myofascial limitations and pain.? Pt requires skilled therapy to improve ROM ? and strength and has good rehab potential.? Eval followed by HEP with printout. Short Term and Concrete Paving Supervisor Goals 1. Independent with HEP 2. Improved knee ROM to full extension to 110 deg flexion 3. Improved quad and hamstring strength to 4+/5 4. Improved ambulatory tolerance to community distances with symmetrical ?? gait pattern.??? Treatment Plan ?1. Manual therapy ? 2. Therex ? 3. Modalities as indicated, moist heat, ice, estim Frequency and Duration: 2-3x a week for 18 visits Certification Dates: 12/06/24 to 03/08/25 Procedure Charges OP PT Eval Mod Complex 30 minutes: Yes
== END 2024-12-09 23:59 | disposition home or self-care (01) ==
LOC: CPTX 11:41
PROVIDERS: PCP Orthopaedic Surgery Adult Reconstructive Orthopaedic Surgery; Referring Provider Orthopaedic Surgery Adult Reconstructive Orthopaedic Surgery; Visit Provider Orthopaedic Surgery Adult Reconstructive Orthopaedic Surgery
DX: M25.562 Pain in left knee (principal); I10 Essential (primary) hypertension; Z96.652 Presence of left artificial knee joint
CPT/HCPCS: 97162

== ENCOUNTER 2024-12-12 10:49 | Outpatient (AMB) | payer MEDICAID, SELFPAY ==
[2024-12-12 10:59] VITALS: BP 126/79; PULSE 69; RESP 18; TEMP 36.6; O2SAT 96; BMI 26.0
--- NOTE | 2024-12-12 10:59 | PD.ORTHCLVIS ---
Vital signs 12/12/24 10:59 Height 1.57 m Height Method Stated Weight 64.183 kg Weight Measurement Method Standing Scale BMI 26.0 BP 126/79 Blood Pressure Source Automatic Cuff Blood Pressure Location Right Upper Arm Position Sitting Respiration 18 Pulse 69 Pulse Source Monitor Temp 97.8 F Temp Source Temporal Artery Scan Pulse Oximetry (%) 96 Oxygen Delivery Method Room Air Med/Allergies Allergies & Medications Allergies No Known Allergies Allergy (Verified 12/12/24 11:00) Medication Reconciliation duloxetine 60 mg capsule,delayed release (Cymbalta) 60 mg PO QDAY 01/10/21 [History Confirmed 12/12/24] ibuprofen 600 mg tablet 600 mg PO Q8H PRN pain 10/17/24 [History Confirmed 12/12/24] celecoxib 100 mg capsule 100 mg PO Q12H 10/27/24 [History Confirmed 12/12/24] magnesium 200 mg tablet 200 mg PO BID 10/27/24 [History Confirmed 12/12/24] omeprazole 40 mg capsule,delayed release 40 mg PO DAILY 10/27/24 [History Confirmed 12/12/24] vitamins-iron fumarate 65 mg iron-folic acid 1 mg tablet 1 tab PO QAM 10/27/24 [History Confirmed 12/12/24] acetaminophen 500 mg tablet (Acetaminophen Extra Strength) 1,000 mg (2 x 500 mg) PO Q6H PRN pain #90 tabs 10/30/24 [Rx Confirmed 12/12/24] aspirin 81 mg tablet,delayed release 81 mg PO BID #60 tabs 10/30/24 [Rx Confirmed 12/12/24] doxycycline hyclate 100 mg tablet 100 mg PO BID #14 tabs 10/30/24 [Rx Confirmed 12/12/24] gabapentin 300 mg capsule 300 mg PO .qhs #30 caps 10/30/24 [Rx Confirmed 12/12/24] oxycodone 5 mg tablet 5 mg PO Q6H PRN pain #28 tabs 10/30/24 [Rx Confirmed 12/12/24] oxycodone 5 mg tablet 5 mg PO Q6H PRN pain #28 tabs 10/30/24 [Rx Confirmed 12/12/24] sennosides 8.6 mg-docusate sodium 50 mg tablet (Senna-S) 1 tab-cap PO QDAY #30 tabs 10/30/24 [Rx Confirmed 12/12/24] hydrocodone 5 mg-acetaminophen 325 mg tablet 1 tab PO Q6H PRN pain #28 tabs 11/06/24 [Rx Confirmed 12/12/24] pantoprazole 40 mg tablet,delayed release 40 mg PO QDAY #30 tabs 11/06/24 [Rx Confirmed 12/12/24] ondansetron 4 mg disintegrating tablet 4 mg PO Q8H #10 tabs 11/07/24 [Rx Confirmed 12/12/24] Exam Exam Patient is in no acute distress and is cooperative with the examination today. Breathing is nonlabored. In no respiratory distress. Bilateral extremities were evaluated and demonstrates sensation intact to light touch. Palpable pedal pulses are present. No significant edema is present. Bilateral hips were examined. The patient has no pain with log roll of the hips. Internal rotation to 30 degrees and external rotation to 30 degrees is painless. Negative FADIR. Left knee incisions clean dry intact. Range of motion 0 to 70 degrees Assessment and Plan Problem List (1) Rheumatoid arthritis: Status: Acute Plan: Patient seen for pleasant 54-year-old female with a left knee rheumatoid arthritis with significant severity. She is status post left total knee replacement and is doing well. She needs to work aggressively with therapy. We will see her in approximately 3 weeks for a motion check Office Procedures GNS Level of Care Nursing/Assessment Patient Status: Established Patient Nursing Assessment/Reassesment: Medication Reconciliation, Update PMH in EMR and Vital Signs Coordination of Care: Complex Care and Chronic Disease 1-5, Education Complex Pt/Fam, Consent,records obtained, informed consent, Results/Orders obtained and Staff clarify orders Established Patient Charge Established Patient Point Assignment: 95 Established Patient Point Charge: EP Level 3 (80-115) MA Intake Visit Data Collection New Patient or Established: Established Patient (seen at [facility] within 3 years) Reason for Visit:: POST OP Seen by Clinical Staff ONLY (RN/MA): No Verbal consent obtained for Telemed visit?: No Prison Keeper Required: No PCP or OBGYN visit in last 3 months: Yes Hx Now: No Do You Feel Safe at Home: Yes Authorities Contacted: N/A Questionairres Past Medical History Past Medical History Have you ever been diagnosed with any of the following: Neurological Problems Seizures: No Migraine: Yes Cardiology Problems Congestive Heart Failure: No Hypertension: Yes (diet control per patient) Varicose Veins: Yes Respiratory Problems Chronic Obstructive Pulmonary Disease (COPD): No Bronchitis: No Smoking: No Smoking Exposure: No Stomache/Intestinal Problems Hepatitis: No Genital/Urinary Problems Renal Disease: No Reproductive Problems Previous Pregnancies: Yes Musculoskeletal Problems Arthritis: Yes Carpal Tunnel Syndrome: Yes (right) Fibromyalgia: Yes Endocrine Problems Diabetes Mellitus Type 1: No Diabetes Mellitus Type 2: No Psychologic Problems Depression: No Other Problems Hospitalization: Yes (surgery) Shingles: No Blood Transfusions: No Anesthesia Reactions: No Chicken Pox: Yes Measles: Yes Mumps: Yes Cancer: No Surgical History Hysterectomy: Yes Subjective Visit Visit for: follow up visit, post op #2 and knee Immunization / Flu Flu Vaccine in the Last 12 Months: No Flu Vaccine Exclusion Criteria: No Exclusion Criteria and Already Received History of Present Illness Chief complaint: POST OP LEFT TKA Date of 1st surgery (if applicable): 10/30/24 Jenny is a pleasant 54-year-old female with a left greater than right knee pain that has been ongoing for quite a while. She is 5 weeks status post left total knee replacement. She is doing well. She has still not started therapy as her insurance was cancelled after surgery and was only reinstated. Personal History Occupation: DISABLED Red flag PMH: BMI BMI Counceling provided: No Pain Pain level (0-10): 0 Pain duration: ALL DAY Pain location: inside (medial), outside (lateral), anterior and posterior Pain quality: dull Pain timing: increases with activity and stairs Associated signs & symptoms: weakness and stiffness Ambulatory data Ambulatory device: cane and none Treatments Number of previous injections: 4 Improvement with previous injections: No Improvement with PT: No Improvement with NSAIDS: no Review of Systems Review of Systems: All systems negative unless otherwise noted in HPI.
--- NOTE | 2024-12-12 11:08 | XR_ITS ---
Examination: Bilateral AP knees single view PA lateral axial left knee 3 views TECHNIQUE: Bilateral AP knees standing single view Left knee PA standing flexion, standing lateral, axial left knee 3 views total 4 views Date and time: December 12, 2024 1114 hours INDICATIONS: Left knee surgery October 2024 FINDINGS: Moderate osteopenia Total left knee arthroplasty. Satisfactory alignment No loosening of the prosthetic components Small to moderate knee effusion Moderate osteoarthritis medial lateral joint spaces right knee Patella right knee appears laterally situated which may be related to projection IMPRESSION: Total left knee arthroplasty with satisfactory alignment
== END 2024-12-12 11:09 | disposition home or self-care (01) ==
LOC: HODSRG 10:49
PROVIDERS: PCP Physician Assistant; Referring Provider Physician Assistant; Supervising Provider Orthopaedic Surgery Adult Reconstructive Orthopaedic Surgery; Visit Provider Orthopaedic Surgery Adult Reconstructive Orthopaedic Surgery
DX: M06.862 Other specified rheumatoid arthritis, left knee (principal); Z96.652 Presence of left artificial knee joint; M25.562 Pain in left knee; M25.561 Pain in right knee
CPT/HCPCS: 73564; 99213; G0463

== ENCOUNTER 2025-01-02 08:03 | Outpatient (AMB) | payer MEDICAID, SELFPAY ==
[2025-01-02 08:14] VITALS: BP 114/77; PULSE 69; RESP 17; TEMP 36.7; O2SAT 94; BMI 26.2
--- NOTE | 2025-01-02 08:14 | PD.ORTHCLVIS ---
Vital signs 01/02/25 08:14 Height 1.57 m Height Method Stated Weight 64.524 kg Weight Measurement Method Standing Scale BMI 26.2 BP 114/77 Blood Pressure Source Automatic Cuff Blood Pressure Location Left Upper Arm Position Sitting Respiration 17 Pulse 69 Pulse Source Monitor Temp 98.1 F Temp Source Temporal Artery Scan Pulse Oximetry (%) 94 L Oxygen Delivery Method Room Air Med/Allergies Allergies & Medications Allergies No Known Allergies Allergy (Verified 01/02/25 08:15) Medication Reconciliation duloxetine 60 mg capsule,delayed release (Cymbalta) 60 mg PO QDAY 01/10/21 [History Confirmed 01/02/25] ibuprofen 600 mg tablet 600 mg PO Q8H PRN pain 10/17/24 [History Confirmed 01/02/25] celecoxib 100 mg capsule 100 mg PO Q12H 10/27/24 [History Confirmed 01/02/25] magnesium 200 mg tablet 200 mg PO BID 10/27/24 [History Confirmed 01/02/25] omeprazole 40 mg capsule,delayed release 40 mg PO DAILY 10/27/24 [History Confirmed 01/02/25] vitamins-iron fumarate 65 mg iron-folic acid 1 mg tablet 1 tab PO QAM 10/27/24 [History Confirmed 01/02/25] acetaminophen 500 mg tablet (Acetaminophen Extra Strength) 1,000 mg (2 x 500 mg) PO Q6H PRN pain #90 tabs 10/30/24 [Rx Confirmed 01/02/25] aspirin 81 mg tablet,delayed release 81 mg PO BID #60 tabs 10/30/24 [Rx Confirmed 01/02/25] doxycycline hyclate 100 mg tablet 100 mg PO BID #14 tabs 10/30/24 [Rx Confirmed 01/02/25] gabapentin 300 mg capsule 300 mg PO .qhs #30 caps 10/30/24 [Rx Confirmed 01/02/25] oxycodone 5 mg tablet 5 mg PO Q6H PRN pain #28 tabs 10/30/24 [Rx Confirmed 01/02/25] oxycodone 5 mg tablet 5 mg PO Q6H PRN pain #28 tabs 10/30/24 [Rx Confirmed 01/02/25] sennosides 8.6 mg-docusate sodium 50 mg tablet (Senna-S) 1 tab-cap PO QDAY #30 tabs 10/30/24 [Rx Confirmed 01/02/25] hydrocodone 5 mg-acetaminophen 325 mg tablet 1 tab PO Q6H PRN pain #28 tabs 11/06/24 [Rx Confirmed 01/02/25] pantoprazole 40 mg tablet,delayed release 40 mg PO QDAY #30 tabs 11/06/24 [Rx Confirmed 01/02/25] ondansetron 4 mg disintegrating tablet 4 mg PO Q8H #10 tabs 11/07/24 [Rx Confirmed 01/02/25] Exam Exam Patient is in no acute distress and is cooperative with the examination today. Breathing is nonlabored. In no respiratory distress. Bilateral extremities were evaluated and demonstrates sensation intact to light touch. Palpable pedal pulses are present. No significant edema is present. Bilateral hips were examined. The patient has no pain with log roll of the hips. Internal rotation to 30 degrees and external rotation to 30 degrees is painless. Negative FADIR. Left knee incisions clean dry intact. Range of motion 0 to 90 degrees Assessment and Plan Problem List (1) Rheumatoid arthritis: Status: Acute Plan: Patient seen for pleasant 54-year-old female with left knee rheumatoid arthritis with significant severity. She is status post left total knee replacement and is doing well. Her range of motion is not great at this time. She can only get to 85 degrees of flexion. We discussed the 2 options. We discussed that we can do continue conservative treatment with aggressive physical therapy versus manipulation under anesthesia. She is getting close to the window where a manipulation would not be a great option. She would like to undergo manipulation under anesthesia of her left knee. We discussed different risks. We discussed the risk of fracture or extensor mechanism rupture. She would like to proceed with this (2) Arthrofibrosis: Status: Acute Office Procedures GNS Level of Care Nursing/Assessment Patient Status: Established Patient Nursing Assessment/Reassesment: Medication Reconciliation, Update PMH in EMR and Vital Signs Coordination of Care: Complex Care and Chronic Disease 1-5, Education Complex Pt/Fam, Consent,records obtained, informed consent, Results/Orders obtained and Staff clarify orders Established Patient Charge Established Patient Point Assignment: 95 Established Patient Point Charge: EP Level 3 (80-115) MA Intake Visit Data Collection New Patient or Established: Established Patient (seen at [facility] within 3 years) Reason for Visit:: FOLLOW UP LEFT KNEE MANIPULATION Seen by Clinical Staff ONLY (RN/MA): No Kiln Stacker Required: No PCP or OBGYN visit in last 3 months: Yes Hx Now: No Do You Feel Safe at Home: Yes Authorities Contacted: N/A Questionairres Past Medical History Past Medical History Have you ever been diagnosed with any of the following: Neurological Problems Seizures: No Migraine: Yes Cardiology Problems Congestive Heart Failure: No Hypertension: Yes (diet control per patient) Varicose Veins: Yes Respiratory Problems Chronic Obstructive Pulmonary Disease (COPD): No Bronchitis: No Smoking: No Smoking Exposure: No Stomache/Intestinal Problems Hepatitis: No Genital/Urinary Problems Renal Disease: No Reproductive Problems Previous Pregnancies: Yes Musculoskeletal Problems Arthritis: Yes Carpal Tunnel Syndrome: Yes (right) Fibromyalgia: Yes Endocrine Problems Diabetes Mellitus Type 1: No Diabetes Mellitus Type 2: No Psychologic Problems Depression: No Other Problems Hospitalization: Yes (surgery) Shingles: No Blood Transfusions: No Anesthesia Reactions: No Chicken Pox: Yes Measles: Yes Mumps: Yes Cancer: No Surgical History Hysterectomy: Yes Subjective Visit Visit for: follow up visit and knee (LEFT KNEE MANIPULATION ) Immunization / Flu Flu Vaccine in the Last 12 Months: Yes Flu Vaccine Exclusion Criteria: Already Received History of Present Illness Chief complaint: POST OP LEFT TKA Date of 1st surgery (if applicable): 10/30/24 Jenny is a pleasant 54-year-old female with a left greater than right knee pain that has been ongoing for quite a while. She is 8 weeks status post left total knee replacement. She is doing well. She reports that the pain is controlled but her range of motion is limited. She started physical therapy 5 weeks late due to insurance reasons. She reports that the knee continues to improve but that her flexion is limited. We discussed manipulation under anesthesia as a reasonable option for her left knee given that her range of motion is not improving significantly. Personal History Occupation: DISABLED Red flag PMH: none BMI Counceling provided: No Pain Pain level (0-10): 6 Pain duration: 10/2024 Pain location: anterior Pain quality: aching Pain timing: night and increases with activity (AFTER PHYISCAL THREAPY ) Associated signs & symptoms: none Ambulatory data Ambulatory device: none Walking distance (minutes): 0 Treatments Number of previous injections: 0 Improvement with previous injections: No Number of Physical Therapy sessions: 8 Improvement with PT: Yes Improvement with NSAIDS: n/a Review of Systems Review of Systems: All systems negative unless otherwise noted in HPI.
== END 2025-01-02 08:37 | disposition home or self-care (01) ==
LOC: HODSRG 08:03
PROVIDERS: PCP Physician Assistant; Referring Provider Physician Assistant; Supervising Provider Orthopaedic Surgery Adult Reconstructive Orthopaedic Surgery; Visit Provider Orthopaedic Surgery Adult Reconstructive Orthopaedic Surgery
DX: M06.862 Other specified rheumatoid arthritis, left knee (principal); Z96.652 Presence of left artificial knee joint; M24.60 Ankylosis, unspecified joint; M25.562 Pain in left knee; M25.561 Pain in right knee
CPT/HCPCS: 99213; G0463

== ENCOUNTER 2025-01-04 11:00 | Outpatient (RCR) | payer MEDICAID, SELFPAY ==
--- NOTE | 2024-12-12 15:30 | PT.ODAYNRPT ---
PT Outpatient Daily Note OP Daily Note Outpatient Physical Therapy Treatment Date: 12/12/24 Visit Reasons: Left TKA Subjective: Doing HEP with improved extension ROM of L knee since evaluation Objective: See F/S for therex MT: PROM into flexion with overpressure to end-range x12' Assessment: Improved knee extension ROM since the evaluation to about -6 deg and flexion PROM to about 75 deg today with manual therapy Plan: Aggressive manual therapy to improve ROM of L knee flexion and extension Length of Time (minutes) of Treatment: 30 Minutes Procedure Charges Therapeutic Exercise 15 minutes: Yes Manual Online Education Manager 15 minutes: Yes
--- NOTE | 2024-12-14 14:34 | PT.ODAYNRPT ---
PT Outpatient Daily Note OP Daily Note Outpatient Physical Therapy Treatment Date: 12/14/24 Visit Reasons: Left TKA Subjective: Doing HEP with improved extension ROM of L knee since evaluation Objective: See F/S for therex MT: PROM into extension with overpressure to end-range x7' Assessment: Improved knee extension ROM since the evaluation to about -2 deg Plan: Aggressive manual therapy to improve ROM of L knee flexion and extension Length of Time (minutes) of Treatment: 30 Minutes Procedure Charges Therapeutic Exercise 30 minutes: Yes
--- NOTE | 2024-12-18 17:51 | PTNOTE_ITS ---
PT Outpatient Daily Note OP Daily Note Outpatient Physical Therapy Treatment Date: 12/18/24 Visit Reasons: Left TKA Subjective: Doing HEP with improved extension ROM of L knee since evaluation Objective: See F/S for therex MT: PROM into flexion with overpressure to end-range x10' Assessment: Improved knee flexion ROM since the evaluation to about 85 deg Plan: Aggressive manual therapy to improve ROM of L knee flexion and extension Length of Time (minutes) of Treatment: 30 Minutes Procedure Charges Therapeutic Exercise 15 minutes: Yes Manual Head Of Maintenance 15 minutes: Yes
--- NOTE | 2024-12-21 13:55 | PT.ODAYNRPT ---
PT Outpatient Daily Note OP Daily Note Outpatient Physical Therapy Treatment Date: 12/21/24 Visit Reasons: Left TKA Subjective: Doing HEP with improved extension ROM of L knee since evaluation Objective: See F/S for therex MT: PROM into flexion with overpressure to end-range x10' with high amount of overpressure Assessment: Improved knee flexion ROM since the evaluation to about 85 deg with pain Plan: Aggressive manual therapy to improve ROM of L knee flexion and extension Length of Time (minutes) of Treatment: 30 Minutes Procedure Charges Therapeutic Exercise 15 minutes: Yes Manual Chief Technology Officer 15 minutes: Yes
--- NOTE | 2024-12-25 15:18 | PT.ODAYNRPT ---
PT Outpatient Daily Note OP Daily Note Outpatient Physical Therapy Treatment Date: 12/25/24 Visit Reasons: Left TKA Subjective: Pt reports L knee is doing ok, still stiff and painful. Pt shared that she has been compliant with HEP. Objective: Please see flow sheet for ther ex list. Assessment: Performed PROM into knee flexion, pt guarded resulting in poor ROM. Plan: Continue with POC. Length of Time (minutes) of Treatment: 30 Minutes Procedure Charges Therapeutic Exercise 30 minutes: Yes
--- NOTE | 2024-12-27 15:51 | PT.ODAYNRPT ---
PT Outpatient Daily Note OP Daily Note Outpatient Physical Therapy Treatment Date: 12/27/24 Visit Reasons: Left TKA Subjective: Pt reports L knee is doing ok. Objective: Please see flow shet for ther ex list. Assessment: Focus on improving knee mobility, pt tolerated with minimal pain. Plan: Continue with poC. Length of Time (minutes) of Treatment: 30 Minutes Procedure Charges Therapeutic Exercise 30 minutes: Yes
--- NOTE | 2024-12-29 15:55 | PT.ODAYNRPT ---
PT Outpatient Daily Note OP Daily Note Outpatient Physical Therapy Treatment Date: 12/29/24 Visit Reasons: Left TKA Subjective: Pt reports L knee is painful and swollen, ROM is not where she would like it to be. As per pt she has a follow up with the surgeon next week. Objective: Please see flow sheet for ther ex list. Assessment: High focus on restoring ROM. Pt encouraged to continue with HEP. Plan: Continue with POC. Length of Time (minutes) of Treatment: 30 Minutes Procedure Charges Therapeutic Exercise 30 minutes: Yes
--- NOTE | 2025-01-02 11:07 | PT.ODAYNRPT ---
PT Outpatient Daily Note OP Daily Note Outpatient Physical Therapy Treatment Date: 01/02/25 Visit Reasons: Left TKA Subjective: Doing HEP with improved extension and flexion ROM of L knee. She plans on scheduling SHAHIDA soon. Objective: See F/S for therex MT: PROM into flexion with overpressure to end-range x10' with high amount of overpressure Assessment: Improved knee flexion ROM since the evaluation to about 90 deg with less pain Plan: Aggressive manual therapy to improve ROM of L knee flexion and extension Length of Time (minutes) of Treatment: 30 Minutes Procedure Charges Therapeutic Exercise 15 minutes: Yes Manual Environmental Science Professor 15 minutes: Yes
--- NOTE | 2025-01-04 14:23 | PT.ODAYNRPT ---
PT Outpatient Daily Note OP Daily Note Outpatient Physical Therapy Treatment Date: 01/04/25 Visit Reasons: Left TKA Subjective: Doing HEP with improved extension and flexion ROM of L knee. She plans on scheduling SHAHIDA soon. Objective: See F/S for therex MT: PROM into flexion with overpressure to end-range x7' with high amount of overpressure Assessment: Improved knee flexion ROM since the evaluation to about 90 deg with less pain. Lacking about 10 deg of extension in supine that improves with manual therapy to full Plan: Aggressive manual therapy to improve ROM of L knee flexion and extension Length of Time (minutes) of Treatment: 30 Minutes Procedure Charges Therapeutic Exercise 30 minutes: Yes
== END 2025-01-08 23:59 | disposition home or self-care (01) ==
LOC: CPTX 11:00
PROVIDERS: PCP Orthopaedic Surgery Adult Reconstructive Orthopaedic Surgery; Referring Provider Orthopaedic Surgery Adult Reconstructive Orthopaedic Surgery; Visit Provider Orthopaedic Surgery Adult Reconstructive Orthopaedic Surgery
DX: M25.562 Pain in left knee (principal); M25.662 Stiffness of left knee, not elsewhere classified; Z96.652 Presence of left artificial knee joint; I10 Essential (primary) hypertension
CPT/HCPCS: 97110; 97140

== ENCOUNTER 2025-01-10 05:56 | Day surgery (SDC) | payer MEDICAID, SELFPAY ==
[2025-01-09 07:05] VITALS: BMI 25.2
[2025-01-09 08:18] LABS: Basophils # (Auto) 0.1 Thou/mm3 (0.0-0.2); Basophils % (Auto) 2 % (0-2.5); Eosinophils # (Auto) 0.1 Thou/mm3 (0.0-0.5); Eosinophils % (Auto) 2 % (0-10); Hematocrit 32.7 % (36.0-46.0); Hemoglobin 11.0 g/dL (12.0-16.0); Immature Granulocytes Auto 0.00 Thou/mm3 (0.00-0.00); Lymphocytes # (Auto) 3.3 Thou/mm3 (1.0-4.8); Lymphocytes % (Auto) 55 % (10-50); Mean Corpuscular HGB Conc 33.6 g/dl (31.0-37.0); Mean Corpuscular Hemoglobin 27.1 pg (25.0-35.0); Mean Corpuscular Volume 81 fL (80-100); Monocytes # (Auto) 0.5 Thou/mm3 (0.0-0.8); Monocytes % (Auto) 9 % (0-12); Neutrophils # (Auto) 2.0 Thou/mm3 (1.8-7.7); Neutrophils % (Auto) 33 % (37-80); Nucleated Red Blood Cell # 0.00 Thou/mm3 (0.00-0.00); Nucleated Red Blood Cell % 0 /100 WBC (0); Platelet Count 325 Thou/mm3 (140-440); RDW Standard Deviation 45.7 fL (36.4-46.3); Red Blood Count 4.06 Miln/mm3 (4.00-5.20); White Blood Count 6.1 Thou/mm3 (3.6-11.0)
[2025-01-09 08:39] LABS: Alanine Aminotransferase 49 U/L (10-49); Albumin, Serum 4.2 gm/dL (3.5-5.0); Albumin/Globulin Ratio 1.6 (1.2-2.2); Alkaline Phosphatase 54 U/L (46-116); Anion Gap 8 (7-16); Aspartate Amino Transferase 24 U/L (0-34); BUN/Creatinine Ratio 16 Ratio (12-20); Bilirubin,Total 0.3 mg/dL (0.3-1.2); Blood Urea Nitrogen 11 mg/dL (9-23); Calcium 9.1 mg/dL (8.3-10.6); Calcium (Corrected) 9.1 mg/dL (8.5-10.1); Carbon Dioxide 23.8 mMol/L (20.0-31.0); Chloride 110 mMol/L (98-107); Creatinine (Component) 0.7 mg/dL (0.6-1.3); Estimated Creatinine Clearance 84.0 mL/min (>60); Globulin 2.7 gm/dL (2.3-3.5); Glucose 97 mg/dL (74-106); Osmolality,Calculated 282 (275-295); Potassium 4.0 mMol/L (3.4-5.1); Sodium 142 mMol/L (136-145); Total Protein 6.9 gm/dL (5.7-8.2); eGFR > 60 See Note
[2025-01-09 09:05] LABS: INR 1.0 (0.9-1.3); Partial Thromboplastin Time 26.8 Seconds (22.0-36.0); Prothrombin Time 10.6 Seconds (9.0-12.2)
[2025-01-10] VITALS (7 sets, daily range): BP systolic 115–140; BP diastolic 64–92; PULSE 65–82; RESP 16–20; TEMP 36.6–37.1; O2SAT 95–100; BMI 25.9
[2025-01-10] MEDS: MELOXICAM 7.5 MG TABLET PO (06:21)
[2025-01-10] MEDS: PREGABALIN 75 MG CAPSULE PO (06:21)
[2025-01-10] MEDS: ACETAMINOPHEN 325 MG TABLET 650 MG PO (06:21)
[2025-01-10] MEDS: RINGERS LACTATED 1000 ML 1,000 ML 20 ML IV (06:22)
--- NOTE | 2025-01-10 07:49 | PD.SUROPNT ---
Date of Procedure 01/10/25 Pre Op Diagnosis left knee arthrofibrosis Post Op Diagnosis left knee arthrofibrosis Procedure left knee manipulation under anesthesia Findings 0-70 degrees rom preop, post manip rom 0-100 Procedure Description The patient was brought to the operating room and a timeout was performed. After adequate anesthesia, we found the premanip rom was 6-70 degrees. We applied a gentle flexion force and an audible crackles were heard. The postmanipulation rom was 5-105 degrees. The knee felt stable to varus and valgus stress. Anesthesia GETA Pathology / specimen None Pathology comment: none Estimated Blood Loss 0 Condition Stable Disposition same day Surgeon Edwin Dhillon MD Surgical Staff Operation Date: 01/10/25 07:35 <No data on this case meets the specified criteria>
--- NOTE | 2025-01-10 07:50 | SUR.PHASEII ---
Arrived to recovery [facility] via [facility]. Report received from Dr. Mcmahon and Michel RN. Resting with eyes closed. No s/o distress or discomfort. Respirations even and unlabored. +CMS to BLE.
--- NOTE | 2025-01-10 07:51 | XR_ITS ---
Examination: Left knee 2 views Technique one AP lateral left knee 2 views Date and time: January 10, 2025 0813 hours INDICATIONS: Postop knee replacement FINDINGS: Total left knee arthroplasty. Satisfactory alignment. Moderate osteopenia. Moderate knee effusion No fracture IMPRESSION: Total left knee arthroplasty with satisfactory alignment
--- NOTE | 2025-01-10 07:56 | SUR.PHASEII ---
Bedside report given to Sidra Mccallum RN.
[2025-01-10] MEDS: KETOROLAC INJ 30 MG/ML VIAL IVP (08:05)
[2025-01-10] MEDS: oxyCODONE HCL 5 MG IR TAB PO (08:12)
--- NOTE | 2025-01-10 08:50 | SUR.PHASEII ---
0756: pt awake, alert, able to follow commands, breathing unlabored, VS stable, pt able to move bilateral lower extremities, circulation and sensation intact to bilateral lower extremities, pt reports pain 04/20-will call anesthesia for pain medication, report from Lina TAFOYA 0800: ice pack applied to left knee for pain management 0815: ice pack removed, pt tolerating oral fluid without difficulty swallowing or n/v 0850: pt able to dress self and ambulate to wheelchair with steady gait, discharge instructions given with son present, pt and son verbalize understanding of discharge instructions, pt discharged via wheelchair with all belonigngs and copies of discharge paperwork
== END 2025-01-10 08:50 | disposition home or self-care (01) ==
PROVIDERS: Anesthesiology; PCP Physician Assistant; Referring Provider Orthopaedic Surgery Adult Reconstructive Orthopaedic Surgery; Visit Provider Orthopaedic Surgery Adult Reconstructive Orthopaedic Surgery
PROC: (CPT 27570; principal; 2025-01-10 07:30)
DX: M24.662 Ankylosis, left knee (principal)
CPT/HCPCS: 27570; 36415; 73560; 80048; 80053; 85025; 85610; 85730; J1885; J2704; J3490; J7120; A9270

== ENCOUNTER 2025-01-11 10:00 | Outpatient (RCR) | payer MEDICAID, SELFPAY ==
--- NOTE | 2025-01-09 12:52 | PT.ODAYNRPT ---
PT Outpatient Daily Note OP Daily Note Outpatient Physical Therapy Treatment Date: 01/09/25 Visit Reasons: Left TKA Subjective: Doing HEP with improved extension and flexion ROM of L knee. The SHAHIDA is scheduled tomorrow. Objective: See F/S for therex Assessment: Improved knee flexion ROM since the evaluation to about 90 deg with less pain. Lacking about 10 deg of extension in supine that improves with manual therapy to full Plan: Aggressive manual therapy to improve ROM of L knee flexion and extension Length of Time (minutes) of Treatment: 30 Minutes Procedure Charges Therapeutic Exercise 30 minutes: Yes
--- NOTE | 2025-01-11 10:44 | PT.ODAYNRPT ---
PT Outpatient Daily Note OP Daily Note Outpatient Physical Therapy Treatment Date: 01/11/25 Visit Reasons: Left TKA Subjective: Pt had SHAHIDA yesterday and the knee is sore Objective: See F/S for therex MT: PROM into flexion x15' to end-range Assessment: Improved knee flexion ROM since the evaluation to about 90 deg with less pain. Lacking about 10 deg of extension in supine that improves with manual therapy to full Plan: Aggressive manual therapy to improve ROM of L knee flexion and extension Length of Time (minutes) of Treatment: 30 Minutes Procedure Charges Therapeutic Exercise 15 minutes: Yes Manual Traffic Supervisor 15 minutes: Yes
== END 2025-02-08 23:59 | disposition home or self-care (01) ==
LOC: CPTX 10:00
PROVIDERS: PCP Orthopaedic Surgery Adult Reconstructive Orthopaedic Surgery; Referring Provider Orthopaedic Surgery Adult Reconstructive Orthopaedic Surgery; Visit Provider Orthopaedic Surgery Adult Reconstructive Orthopaedic Surgery
DX: M25.562 Pain in left knee (principal); M25.662 Stiffness of left knee, not elsewhere classified; Z96.652 Presence of left artificial knee joint; I10 Essential (primary) hypertension
CPT/HCPCS: 97110; 97140

== ENCOUNTER 2025-02-20 08:35 | Outpatient (AMB) | payer MEDICAID, SELFPAY ==
--- NOTE | 2025-02-20 08:42 | PD.ORTHCLVIS ---
Vital signs 02/20/25 08:43 Height 1.57 m Height Method Stated Weight 65.402 kg Weight Measurement Method Standing Scale BMI 26.5 BP 126/84 Blood Pressure Source Automatic Cuff Blood Pressure Location Left Upper Arm Position Sitting Respiration 19 Pulse 69 Pulse Source Monitor Temp 97.7 F Temp Source Temporal Artery Scan Pulse Oximetry (%) 93 L Oxygen Delivery Method Room Air Med/Allergies Allergies & Medications Allergies No Known Allergies Allergy (Verified 02/20/25 08:43) Medication Reconciliation duloxetine 60 mg capsule,delayed release (Cymbalta) 60 mg PO QDAY 01/10/21 [History Confirmed 01/09/25] ibuprofen 600 mg tablet 600 mg PO Q8H PRN pain 10/17/24 [History Confirmed 01/09/25] magnesium 200 mg tablet 200 mg PO BID 10/27/24 [History Confirmed 01/09/25] omeprazole 40 mg capsule,delayed release 40 mg PO DAILY 10/27/24 [History Confirmed 01/09/25] vitamins-iron fumarate 65 mg iron-folic acid 1 mg tablet 1 tab PO QAM 10/27/24 [History Confirmed 01/09/25] gabapentin 300 mg capsule 300 mg PO .qhs #30 caps 10/30/24 [Rx Confirmed 01/09/25] sennosides 8.6 mg-docusate sodium 50 mg tablet (Senna-S) 1 tab-cap PO QDAY #30 tabs 10/30/24 [Rx Confirmed 01/09/25] benazepril 20 mg tablet 20 mg PO QDAY 01/09/25 [History Confirmed 01/09/25] hydrochlorothiazide 25 mg tablet 25 mg PO QAM 01/09/25 [History Confirmed 01/09/25] acetaminophen 500 mg tablet (Acetaminophen Extra Strength) 1,000 mg (2 x 500 mg) PO Q6H PRN pain #90 tabs 01/10/25 [Rx] Exam Exam Patient is in no acute distress and is cooperative with the examination today. Breathing is nonlabored. In no respiratory distress. Bilateral extremities were evaluated and demonstrates sensation intact to light touch. Palpable pedal pulses are present. No significant edema is present. Bilateral hips were examined. The patient has no pain with log roll of the hips. Internal rotation to 30 degrees and external rotation to 30 degrees is painless. Negative FADIR. Left knee incisions clean dry intact. Range of motion 0 to 100 degrees Assessment and Plan Problem List (1) Arthrofibrosis: Status: Acute (2) Rheumatoid arthritis: Status: Acute Plan: Patient seen for pleasant 54-year-old female with left knee rheumatoid arthritis with significant severity. She is status post left total knee replacement and is doing well. She is doing well and she get more therapy Office Procedures GNS Level of Care Nursing/Assessment Patient Status: Established Patient Nursing Assessment/Reassesment: Medication Reconciliation, Update PMH in EMR and Vital Signs Coordination of Care: Complex Care and Chronic Disease 1-5, Education Complex Pt/Fam, Consent,records obtained, informed consent, Results/Orders obtained and Staff clarify orders Established Patient Charge Established Patient Point Assignment: 95 Established Patient Point Charge: EP Level 3 (80-115) MA Intake Visit Data Collection New Patient or Established: Established Patient (seen at [facility] within 3 years) Reason for Visit:: FOLLOW UP LEFT KNEE MANIPULATION Seen by Clinical Staff ONLY (RN/MA): No Custom Harvester Required: No PCP or OBGYN visit in last 3 months: Yes Hx Now: No Do You Feel Safe at Home: Yes Authorities Contacted: N/A Questionairres Past Medical History Past Medical History Have you ever been diagnosed with any of the following: Neurological Problems Cerebrovascular Accident (CVA): No Transient Ischemic Attacks (TIA): No Dementia: No Alzheimer's Disease: No Parkinson's Disease: No Brain Tumor: No Meningitis: No Seizures: No Epilepsy: No Multiple Sclerosis: No Cerebral Palsy: No Amyotrophic Lateral Sclerosis (ALS/Vani Gehrig's): No Guillain-Firth Syndrome: No Spina Bifida: No Paralysis: No Peripheral Neuropathy: No Durand's Palsy: No Subdural Hematoma: No Migraine: Yes Head Trauma: No Spinal Cord Injury: No Traumatic Brain Injury: No Cardiology Problems Myocardial Infarction: No Cardiac Arrhythmia: No Atrial Fibrillation: No Angina: No Heart Murmur: No Coronary Artery Disease: No Atherosclerotic Heart Disease: No Peripheral Vascular Disease: No Hypercholesterolemia: No Aneurysm: No Congestive Heart Failure: No Congenital Heart Disease: No Valvular Heart Disease: No Rheumatic Fever: No Cardiomyopathy: No Edema: No Pericarditis: No Cellulitis: No Deep Vein Thrombosis: No Hypertension: Yes (diet control per patient) Hypotension: No Varicose Veins: Yes Respiratory Problems Chronic Obstructive Pulmonary Disease (COPD): No Asthma: No Bronchitis: No Emphysema: No Pneumonia: No Pulmonary Fibrosis: No Tuberculosis: No Pulmonary Embolism: No Pulmonary Edema: No Sleep Apnea: No CPAP Dependent: No Respiratory Aspiration: No Dyspnea: No Orthopnea: No Hx Cough: No Cough: No Wheezing: No Chest Deformities: No Smoking: No Smoking Cessation Counseling: No Smoking Exposure: No Tobacco Use: No Clubbing: No Exposure to Respiratory Irritants: No Intubation: No Stomache/Intestinal Problems Liver Cancer: No Hepatitis: No Cirrhosis: No Pancreatic Cancer: No Pancreatitis: No Celiac Disease: No Gall Bladder Disease: No Gastrointestinal Bleed: No Esophageal Varices: No Moser's Esophagus: No Colitis: No Ulcerative Colitis: No Diverticulitis: No Diverticulosis: No Ulcer: No Colorectal Cancer: No Irritable Bowel: No Crohn's Disease: No Obstructive Bowel: No Hiatal Hernia: No Hemorrhoids: No Gastroesophageal Reflux Disease: Yes Polyps: No Obesity: No Genital/Urinary Problems Chronic Kidney Disease: No Renal Disease: No Kidney Stones: No Polycystic Kidney Disease: No Neurogenic Bladder: No Inguinal Hernia: No Dialysis: No Reproductive Problems Breast Cancer: No Endometriosis: No Fibroids: No Genital Herpes: No Gonorrhea: No Pelvic Inflammatory Disease: No Polycystic Ovarian Syndrome: No Previous Pregnancies: Yes Syphilis: No Uterine Prolapse: No Musculoskeletal Problems Muscular Dystrophy: No Myasthenia Gravis: No Marfan's Syndrome: No Bone Cancer: No Arthritis: Yes Rheumatoid Arthritis: No Osteoporosis: No Degenerative Disk Disease: No Gout: No Scoliosis: No Carpal Tunnel Syndrome: Yes (right) Fibromyalgia: Yes Fractures: No Degenerative Joint Disease: No Osteomyelitis: No Poliovirus: No Head,Eye,Nose,Throat Problems Cataracts: No Glaucoma: No Blind: No Retinal Detachment: No Macular Degeneration: No Chronic Ear Infections: No Deafness: No Eye Prosthesis: No Endocrine Problems Diabetes Mellitus Type 1: No Diabetes Mellitus Type 2: No Hypoglycemia: No Arthur's Syndrome: No Pedro's Disease: No Hyperthyroidism: No Hypothyroidism: No Thyroid Cancer: No Parathyroid Disease: No Pituitary Disease: No Systemic Lupus Erythematosus: No Syndrome of Inappropriate Antidiuretic Hormone: No Adrenal Disease: No Graves' Disease: No Blood Problems Anemia: No Leukemia: No Hemophilia: No Thalassemia: No Sickle Cell Disease: No Clotting Problems: No Psychologic Problems Schizophrenia: No Recreational Drug Use: No Bipolar Disorder: No Depression: No Anxiety: No Behavior Problems: No Self-Mutilation: No Attention Deficit Disorder: No Attention Deficit Hyperactivity Disorder: No Depression: No Post Traumatic Stress Disorder: No Eating Disorder: No Other Problems Hospitalization: Yes (surgery) Shingles: No Blood Transfusions: No Anesthesia Reactions: No Chicken Pox: Yes Measles: Yes Mumps: Yes Cancer: No Surgical History Total Knee Replacement: Yes Hysterectomy: Yes Subjective Visit Visit for: follow up visit and knee (LEFT KNEE MANIPULATION ) Immunization / Flu Flu Vaccine in the Last 12 Months: Yes Flu Vaccine Exclusion Criteria: Already Received History of Present Illness Chief complaint: POST OP LEFT TKA Date of 1st surgery (if applicable): 10/30/24 Jenny is a pleasant 54-year-old female with a left greater than right knee pain that has been ongoing for quite a while. She is 1 month postop status post left total knee replacement manipulation under anesthesia. She is doing well. Her motion is increasing Personal History Occupation: DISABLED Red flag PMH: none BMI Counceling provided: No Pain Pain level (0-10): 6 Pain duration: 10/2024 Pain location: anterior Pain quality: aching Pain timing: night and increases with activity (AFTER PHYISCAL THREAPY ) Associated signs & symptoms: none Ambulatory data Ambulatory device: none Walking distance (minutes): 0 Treatments Number of previous injections: 0 Improvement with previous injections: No Number of Physical Therapy sessions: 8 Improvement with PT: Yes Improvement with NSAIDS: n/a Review of Systems Review of Systems: All systems negative unless otherwise noted in HPI.
[2025-02-20 08:43] VITALS: BP 126/84; PULSE 69; RESP 19; TEMP 36.5; O2SAT 93; BMI 26.5
== END 2025-02-20 08:55 | disposition home or self-care (01) ==
PROVIDERS: PCP Physician Assistant; Referring Provider Physician Assistant; Supervising Provider Orthopaedic Surgery Adult Reconstructive Orthopaedic Surgery; Visit Provider Orthopaedic Surgery Adult Reconstructive Orthopaedic Surgery
DX: M24.60 Ankylosis, unspecified joint (principal); M06.862 Other specified rheumatoid arthritis, left knee; Z96.652 Presence of left artificial knee joint; M25.562 Pain in left knee; M25.561 Pain in right knee; I10 Essential (primary) hypertension; K21.9 Gastro-esophageal reflux disease without esophagitis
CPT/HCPCS: 99213; G0463

== ENCOUNTER 2025-03-08 08:00 | Outpatient (RCR) | payer MEDICAID, SELFPAY ==
--- NOTE | 2025-02-21 10:32 | PTNOTE_ITS ---
PT OP Progress/Discharge Note Date of Service: 02/21/25 Progress Note/DC Note Progress Note/Discharge Note: Progress Note Patient Information Visit Reasons: LEFT TKA Service Continue Service or Discharge: Continue Service Status Subjective: Pt was out of the area since last visit and did therapy there and reports imp roved ROM with less pain in the L knee. Objective: L knee AROM: Flexion: 112 deg Extension: -10 deg Gait: symmetrical Assessment: Pt has attended 11/12 authorized visits with good progress with therapy goals. She has improved flexion ROM to meet the goal of 110 deg but extension is lacking about 10 deg with ligamentous end-feel. Pt has improved ambulatory distance to community. She is independent with HEP to meet that goal. Plan: Reassess next visit to see if she should continue with therapy Procedure Charges Therapeutic Exercise 30 minutes: Yes
--- NOTE | 2025-02-28 09:33 | PTNOTE_ITS ---
PT OP Progress/Discharge Note Date of Service: 02/28/25 Progress Note/DC Note Progress Note/Discharge Note: Progress Note Patient Information Visit Reasons: LEFT TKA Service Continue Service or Discharge: Continue Service Status Subjective: Pt was out of the area since last visit and did therapy there and reports imp roved ROM with less pain in the L knee. Objective: L knee AROM: Flexion: 112 deg Extension: -5 deg Gait: symmetrical STrength: quads: 4-/5 HS: 4-/5 Assessment: Pt has attended 06/22 authorized visits with good progress with therapy goals. She has improved flexion ROM to meet the goal of 110 deg but extension is lacking about 10 deg with ligamentous end-feel. Pt has improved ambulatory distance to community. She is independent with HEP to meet that goal. Pt would benefit from additional therapy to meet strength and ROM goal of full extension and to improve balance on uneven surfaces. Plan: Continue with authorized visits to 18 visits according to order and POC and extend certification dates to 05/08/25 Procedure Charges Therapeutic Exercise 30 minutes: Yes
--- NOTE | 2025-03-06 13:11 | PT.ODAYNRPT ---
PT Outpatient Daily Note OP Daily Note Outpatient Physical Therapy Treatment Date: 03/06/25 Visit Reasons: LEFT TKA Subjective: Overall better ROM with less knee pain Objective: See F/S for therex Assessment: Improved knee extension with heel strike Plan: Continue per POC Length of Time (minutes) of Treatment: 30 Minutes Procedure Charges Therapeutic Exercise 30 minutes: Yes
--- NOTE | 2025-03-08 09:00 | PT.ODAYNRPT ---
PT Outpatient Daily Note OP Daily Note Outpatient Physical Therapy Treatment Date: 03/08/25 Visit Reasons: LEFT TKA Subjective: Denies pain and states she is compliant with HEP Objective: See F/S for therex Assessment: Performs well with minimal cues to correct form, tolerated therex well with no reports of pain. Continues to demonstrate improved knee extension with heel strike. Plan: Continue with POC Length of Time (minutes) of Treatment: 30 Minutes Procedure Charges Therapeutic Exercise 30 minutes: Yes
== END 2025-03-11 23:59 | disposition home or self-care (01) ==
LOC: CPTX 08:00
PROVIDERS: PCP Orthopaedic Surgery Adult Reconstructive Orthopaedic Surgery; Referring Provider Orthopaedic Surgery Adult Reconstructive Orthopaedic Surgery; Visit Provider Orthopaedic Surgery Adult Reconstructive Orthopaedic Surgery
DX: M25.562 Pain in left knee (principal); M25.662 Stiffness of left knee, not elsewhere classified; Z96.652 Presence of left artificial knee joint
CPT/HCPCS: 97110

== ENCOUNTER 2025-04-10 09:30 | Outpatient (RCR) | payer MEDICAID, SELFPAY ==
--- NOTE | 2025-03-20 08:53 | PT.ODAYNRPT ---
PT Outpatient Daily Note OP Daily Note Outpatient Physical Therapy Treatment Date: 03/20/25 Visit Reasons: left tka Subjective: No complaints. Objective: Please see flow sheet for ther ex list. Assessment: Added sitting HS curl with light resistance, pt tolerated well. Plan: Continue with poC. Length of Time (minutes) of Treatment: 30 Minutes Procedure Charges Therapeutic Exercise 30 minutes: Yes
--- NOTE | 2025-03-27 08:36 | PT.ODAYNRPT ---
PT Outpatient Daily Note OP Daily Note Outpatient Physical Therapy Treatment Date: 03/27/25 Visit Reasons: left tka Subjective: Pt c/o of minimal pain to Lt knee. Objective: See F/S for therex performed Assessment: Tolerated therex well with no increase in pain. Progressed to mini squats, demo'd good mechanics w/ no corrective cues needed. Plan: Continue with POC Length of Time (minutes) of Treatment: 30 Minutes Procedure Charges Therapeutic Exercise 30 minutes: Yes
--- NOTE | 2025-03-29 10:27 | PT.ODAYNRPT ---
PT Outpatient Daily Note OP Daily Note Outpatient Physical Therapy Treatment Date: 03/29/25 Visit Reasons: left tka Subjective: Pt c/o minimal pain to Lt knee, reports increased soreness after resisted lateral steps. Objective: See F/S for therex performed Assessment: Progressed to alternating fwd lunges; demo'd good control and mechanics post vc's to avoid knee valgus. Plan: Continue with POC Length of Time (minutes) of Treatment: 30 Minutes Procedure Charges Therapeutic Exercise 30 minutes: Yes
--- NOTE | 2025-04-03 09:02 | PT.ODS1RPT ---
PT OP Progress/Discharge Note Date of Service: 04/03/25 Progress Note/DC Note Progress Note/Discharge Note: Progress Note Patient Information Visit Reasons: left tka Service Continue Service or Discharge: Continue Service Status Subjective: Pt reports improved ROM with less pain in the L knee but difficulty lifting the knee and LE over obstacles and wants to continue with therapy Objective: L knee AROM: Flexion: 112 deg Extension: -5 deg Gait: symmetrical Strength: quads: 4-/5 HS: 4-/5 Assessment: Pt has attended visits with good progress with therapy goals. She has improved flexion ROM to meet the goal of 110 deg but extension is lacking about 10 deg with ligamentous end-feel. Pt has improved ambulatory distance to community. She is independent with HEP to meet that goal. Pt would benefit from additional therapy to meet strength and ROM goal of full extension and to improve balance on uneven surfaces. Plan: Continue with authorized visits x6 to complete 24 authorized visits and extend certification dates to 06/08/25 Procedure Charges Therapeutic Exercise 30 minutes: Yes
--- NOTE | 2025-04-05 09:24 | PT.ODAYNRPT ---
PT Outpatient Daily Note OP Daily Note Outpatient Physical Therapy Treatment Date: 04/05/25 Visit Reasons: left tka Subjective: Pt states she is doing well and reports no changes to Lt knee Objective: See F/S for therex performed Assessment: Improved mechanics and control with mini squats w/ 2lb med ball, did not require corrective cues. Plan: Continue with POC Length of Time (minutes) of Treatment: 30 Minutes Procedure Charges Therapeutic Exercise 30 minutes: Yes
--- NOTE | 2025-04-10 10:08 | PT.ODAYNRPT ---
PT Outpatient Daily Note OP Daily Note Outpatient Physical Therapy Treatment Date: 04/10/25 Visit Reasons: left tka Subjective: Pt states she is doing well with no complaints of Lt knee Objective: See F/S for therex performed Assessment: Improved mechanics and control with single leg squat on total gym and alt forward lunges; less corrective cues required to avoid knee valgus and trunk movement with lunges. No pain to Lt knee reported with therex. Plan: Continue with POC Length of Time (minutes) of Treatment: 30 Minutes Procedure Charges Therapeutic Exercise 30 minutes: Yes
== END 2025-04-10 23:59 | disposition home or self-care (01) ==
LOC: CPTX 09:30
PROVIDERS: PCP Orthopaedic Surgery Adult Reconstructive Orthopaedic Surgery; Referring Provider Orthopaedic Surgery Adult Reconstructive Orthopaedic Surgery; Visit Provider Orthopaedic Surgery Adult Reconstructive Orthopaedic Surgery
DX: M25.562 Pain in left knee (principal); M25.662 Stiffness of left knee, not elsewhere classified; Z96.652 Presence of left artificial knee joint; I10 Essential (primary) hypertension
CPT/HCPCS: 97110

== ENCOUNTER 2025-05-01 08:30 | Outpatient (RCR) | payer MEDICAID, SELFPAY ==
--- NOTE | 2025-04-12 09:06 | PT.ODAYNRPT ---
PT Outpatient Daily Note OP Daily Note Outpatient Physical Therapy Treatment Date: 04/12/25 Visit Reasons: Left TKA Subjective: Pt reports minimal pain and stiffness to Lt knee Objective: See F/S for therex performed Assessment: Improved tolerance and mechanics with alternating forward lunges, no corrective cues required. Ice pack applied post session. Plan: Continue with POC Length of Time (minutes) of Treatment: 30 Minutes Procedure Charges Therapeutic Exercise 30 minutes: Yes
--- NOTE | 2025-04-17 10:18 | PT.ODAYNRPT ---
PT Outpatient Daily Note OP Daily Note Outpatient Physical Therapy Treatment Date: 04/17/25 Visit Reasons: Left TKA Subjective: Doing well, no significant L knee pain today upon arrival Objective: See F/S for therex Assessment: Pt tends to ambulate with decreased knee extension. Can partially correct after low load prolonged stretching Plan: Continue with visits Length of Time (minutes) of Treatment: 30 Minutes Procedure Charges Therapeutic Exercise 30 minutes: Yes
--- NOTE | 2025-04-19 10:31 | PT.ODAYNRPT ---
PT Outpatient Daily Note OP Daily Note Outpatient Physical Therapy Treatment Date: 04/19/25 Visit Reasons: Left TKA Subjective: Doing well, no significant L knee pain today upon arrival Objective: See F/S for therex Assessment: Pt tends to ambulate with decreased knee extension. Can partially correct after low load prolonged stretching Plan: Reassess Length of Time (minutes) of Treatment: 30 Minutes Procedure Charges Therapeutic Exercise 30 minutes: Yes
--- NOTE | 2025-05-01 09:24 | PT.ODS1RPT ---
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 Objective: L knee AROM: Flexion: 112 deg Extension: -5 deg Gait: symmetrical Strength: quads: 4/5 HS: 10/14 Assessment: Pt has attended visits with good progress with therapy goals. She has improved flexion ROM to meet the goal of 110 deg but extension is lacking about 5 deg with ligamentous end-feel. Pt has improved ambulatory distance to community. She is independent with HEP to meet that goal. Pt can squat with hand support x10 with min L knee pain. Plan: D/C with HEP Procedure Charges Therapeutic Exercise 30 minutes: Yes
--- NOTE | 2025-05-01 10:15 | PTNOTE_ITS ---
PT Outpatient Daily Note OP Daily Note Outpatient Physical Therapy Treatment Date: 05/01/25 Visit Reasons: Left TKA Subjective: Pt c/o knee pain. Objective: Please see flow sheet for ther ex list. Assessment: Pt demonstrates poor activity tolerance due to pain response. Plan: Continue with POC. Length of Time (minutes) of Treatment: 30 Minutes EMERGENCY SERVICE RESTORER Service Modifier Method I: Divide the number of min of care provided by the EMERGENCY SERVICE RESTORER/JOSE by the total min of care provided then multiply by 100. If greater than 11 percent modifier is required. Method II: Divide the total time of care provided to patient by 10 (round to the nearest whole number) and add 1 min. to set the minimum time requirement. If treatment total was 60 min., then 10% of 6 min PT CQ modifier applied: CQ Modifier applied Procedure Charges Therapeutic Exercise 30 minutes: Yes
== END 2025-05-11 23:59 | disposition home or self-care (01) ==
LOC: CPTX 08:30
PROVIDERS: PCP Orthopaedic Surgery Adult Reconstructive Orthopaedic Surgery; Referring Provider Orthopaedic Surgery Adult Reconstructive Orthopaedic Surgery; Visit Provider Orthopaedic Surgery Adult Reconstructive Orthopaedic Surgery
DX: Z47.1 Aftercare following joint replacement surgery (principal); Z96.652 Presence of left artificial knee joint; M25.562 Pain in left knee; M25.662 Stiffness of left knee, not elsewhere classified
CPT/HCPCS: 97110

== ENCOUNTER 2025-05-24 08:43 | Outpatient (AMB) | payer MEDICAID, SELFPAY ==
--- NOTE | 2025-05-24 08:51 | ORTHONT_ITS ---
Vital signs 05/24/25 08:56 Height 1.57 m Height Method Measured Weight 63.701 kg Weight Measurement Method Standing Scale BMI 25.8 BP 119/82 Blood Pressure Source Automatic Cuff Blood Pressure Location Left Upper Arm Position Sitting Respiration 18 Pulse 70 Pulse Source Monitor Temp 97.7 F Temp Source Temporal Artery Scan Pulse Oximetry (%) 97 Oxygen Delivery Method Room Air Med/Allergies Allergies & Medications Allergies No Known Allergies Allergy (Verified 05/24/25 08:57) Medication Reconciliation duloxetine 60 mg capsule,delayed release (Cymbalta) 60 mg PO QDAY 01/10/21 [History Confirmed 05/24/25] ibuprofen 600 mg tablet 600 mg PO Q8H PRN pain 10/17/24 [History Confirmed 05/24/25] magnesium 200 mg tablet 200 mg PO BID 10/27/24 [History Confirmed 05/24/25] omeprazole 40 mg capsule,delayed release 40 mg PO DAILY 10/27/24 [History Confirmed 05/24/25] vitamins-iron fumarate 65 mg iron-folic acid 1 mg tablet 1 tab PO QAM 10/27/24 [History Confirmed 05/24/25] sennosides 8.6 mg-docusate sodium 50 mg tablet (Senna-S) 1 tab-cap PO QDAY #30 tabs 10/30/24 [Rx Confirmed 05/24/25] benazepril 20 mg tablet 20 mg PO QDAY 01/09/25 [History Confirmed 05/24/25] hydrochlorothiazide 25 mg tablet 25 mg PO QAM 01/09/25 [History Confirmed 05/24/25] acetaminophen 500 mg tablet (Acetaminophen Extra Strength) 1,000 mg (2 x 500 mg) PO Q6H PRN pain #90 tabs 01/10/25 [Rx Confirmed 05/24/25] celecoxib 200 mg capsule 200 mg PO BID #90 caps 05/24/25 [Rx] gabapentin 300 mg capsule 300 mg PO .qhs #30 caps 05/24/25 [Rx] Exam Exam Patient is in no acute distress and is cooperative with the examination today. Breathing is nonlabored. In no respiratory distress. Bilateral extremities were evaluated and demonstrates sensation intact to light touch. Palpable pedal pulses are present. No significant edema is present. Bilateral hips were examined. The patient has no pain with log roll of the hips. Internal rotation to 30 degrees and external rotation to 30 degrees is painless. Negative FADIR. Left knee incisions clean dry intact. Range of motion 0 to 100 degrees Assessment and Plan Problem List (1) Arthrofibrosis: Status: Acute (2) Rheumatoid arthritis: Status: Acute Plan: Patient seen for pleasant 54-year-old female with left knee rheumatoid arthritis with significant severity. She is status post left total knee replacement and is doing well. She is doing well. We have prescribed her Celebrex for her right knee Office Procedures GNS Level of Care Nursing/Assessment Patient Status: Established Patient Nursing Assessment/Reassesment: Medication Reconciliation, Update PMH in EMR and Vital Signs Coordination of Care: Complex Care and Chronic Disease 1-5, Education Complex Pt/Fam, Consent,records obtained, informed consent, Results/Orders obtained and Staff clarify orders Established Patient Charge Established Patient Point Assignment: 95 Established Patient Point Charge: Level 3 (80-115) MA Intake Visit Data Collection New Patient or Established: Established Patient (seen at [facility] within 3 years) Reason for Visit:: LEFT KNEE STIFFNESS Seen by Clinical Staff ONLY (RN/MA): No Registered Sales Assistant Required: No PCP or OBGYN visit in last 3 months: Yes Hx Now: No Do You Feel Safe at Home: Yes Authorities Contacted: N/A Questionairres Past Medical History Past Medical History Have you ever been diagnosed with any of the following: Neurological Problems Cerebrovascular Accident (CVA): No Transient Ischemic Attacks (TIA): No Dementia: No Alzheimer's Disease: No Parkinson's Disease: No Brain Tumor: No Meningitis: No Seizures: No Epilepsy: No Multiple Sclerosis: No Cerebral Palsy: No Amyotrophic Lateral Sclerosis (ALS/Vani Gehrig's): No Guillain-[place] Syndrome: No Spina Bifida: No Paralysis: No Peripheral Neuropathy: No Durand's Palsy: No Subdural Hematoma: No Migraine: Yes Head Trauma: No Spinal Cord Injury: No Traumatic Brain Injury: No Cardiology Problems Myocardial Infarction: No Cardiac Arrhythmia: No Atrial Fibrillation: No Angina: No Heart Murmur: No Coronary Artery Disease: No Atherosclerotic Heart Disease: No Peripheral Vascular Disease: No Hypercholesterolemia: No Aneurysm: No Congestive Heart Failure: No Congenital Heart Disease: No Valvular Heart Disease: No Rheumatic Fever: No Cardiomyopathy: No Edema: No Pericarditis: No Cellulitis: No Deep Vein Thrombosis: No Hypertension: Yes (diet control per patient) Hypotension: No Varicose Veins: Yes Respiratory Problems Chronic Obstructive Pulmonary Disease (COPD): No Asthma: No Bronchitis: No Emphysema: No Pneumonia: No Pulmonary Fibrosis: No Tuberculosis: No Pulmonary Embolism: No Pulmonary Edema: No Sleep Apnea: No CPAP Dependent: No Respiratory Aspiration: No Dyspnea: No Orthopnea: No Hx Cough: No Cough: No Wheezing: No Chest Deformities: No Smoking: No Smoking Cessation Counseling: No Smoking Exposure: No Tobacco Use: No Clubbing: No Exposure to Respiratory Irritants: No Intubation: No Stomache/Intestinal Problems Liver Cancer: No Hepatitis: No Cirrhosis: No Pancreatic Cancer: No Pancreatitis: No Celiac Disease: No Gall Bladder Disease: No Gastrointestinal Bleed: No Esophageal Varices: No Moser's Esophagus: No Colitis: No Ulcerative Colitis: No Diverticulitis: No Diverticulosis: No Ulcer: No Colorectal Cancer: No Irritable Bowel: No Crohn's Disease: No Obstructive Bowel: No Hiatal Hernia: No Hemorrhoids: No Gastroesophageal Reflux Disease: Yes Polyps: No Obesity: No Genital/Urinary Problems Chronic Kidney Disease: No Renal Disease: No Kidney Stones: No Polycystic Kidney Disease: No Neurogenic Bladder: No Inguinal Hernia: No Dialysis: No Reproductive Problems Breast Cancer: No Endometriosis: No Fibroids: No Genital Herpes: No Gonorrhea: No Pelvic Inflammatory Disease: No Polycystic Ovarian Syndrome: No Previous Pregnancies: Yes Syphilis: No Uterine Prolapse: No Musculoskeletal Problems Muscular Dystrophy: No Myasthenia Gravis: No Marfan's Syndrome: No Bone Cancer: No Arthritis: Yes Rheumatoid Arthritis: No Osteoporosis: No Degenerative Disk Disease: No Gout: No Scoliosis: No Carpal Tunnel Syndrome: Yes (right) Fibromyalgia: Yes Fractures: No Degenerative Joint Disease: No Osteomyelitis: No Poliovirus: No Head,Eye,Nose,Throat Problems Cataracts: No Glaucoma: No Blind: No Retinal Detachment: No Macular Degeneration: No Chronic Ear Infections: No Deafness: No Eye Prosthesis: No Endocrine Problems Diabetes Mellitus Type 1: No Diabetes Mellitus Type 2: No Hypoglycemia: No Arthur's Syndrome: No Pedro's Disease: No Hyperthyroidism: No Hypothyroidism: No Thyroid Cancer: No Parathyroid Disease: No Pituitary Disease: No Systemic Lupus Erythematosus: No Syndrome of Inappropriate Antidiuretic Hormone: No Adrenal Disease: No Graves' Disease: No Blood Problems Anemia: No Leukemia: No Hemophilia: No Thalassemia: No Sickle Cell Disease: No Clotting Problems: No Psychologic Problems Schizophrenia: No Recreational Drug Use: No Bipolar Disorder: No Depression: No Anxiety: No Behavior Problems: No Self-Mutilation: No Attention Deficit Disorder: No Attention Deficit Hyperactivity Disorder: No Depression: No Post Traumatic Stress Disorder: No Eating Disorder: No Other Problems Hospitalization: Yes (surgery) Shingles: No Blood Transfusions: No Anesthesia Reactions: No Chicken Pox: Yes Measles: Yes Mumps: Yes Cancer: No Surgical History Total Knee Replacement: Yes Hysterectomy: Yes Subjective Visit Visit for: follow up visit and knee Immunization / Flu Flu Vaccine in the Last 12 Months: Yes Flu Vaccine Exclusion Criteria: Already Received History of Present Illness Chief complaint: LEFT KNEE STIFFNESS Date of 1st surgery (if applicable): 10/30/24 Jenny is a pleasant 54-year-old female with a left greater than right knee pain that has been ongoing for quite a while. She is 1 month postop status post left total knee replacement manipulation under anesthesia. She is doing well. She has almost no pain. Personal History Occupation: DISABLED Red flag PMH: none BMI Counceling provided: No Pain Pain level (0-10): 0 Pain duration: 10/2024 Pain location: anterior Pain quality: aching Pain timing: night and increases with activity (AFTER PHYISCAL THREAPY ) Associated signs & symptoms: none Ambulatory data Ambulatory device: none Walking distance (minutes): 0 Treatments Number of previous injections: 0 Improvement with previous injections: No Number of Physical Therapy sessions: 8 Improvement with PT: Yes Improvement with NSAIDS: n/a Review of Systems Review of Systems: All systems negative unless otherwise noted in HPI.
[2025-05-24 08:56] VITALS: BP 119/82; PULSE 70; RESP 18; TEMP 36.5; O2SAT 97; BMI 25.8
== END 2025-05-24 09:08 | disposition home or self-care (01) ==
LOC: HODSRG 08:43
PROVIDERS: PCP Physician Assistant; Referring Provider Physician Assistant; Supervising Provider Orthopaedic Surgery Adult Reconstructive Orthopaedic Surgery; Visit Provider Orthopaedic Surgery Adult Reconstructive Orthopaedic Surgery
DX: M06.9 Rheumatoid arthritis, unspecified (principal); M06.862 Other specified rheumatoid arthritis, left knee; M24.60 Ankylosis, unspecified joint; M25.561 Pain in right knee
CPT/HCPCS: 99213; G0463